=== PATIENT | female | born 1960 ===

== ENCOUNTER 2017-01-12 12:21 | Inpatient (IN) | payer BC, OTHER ==
[2017-01-12 12:23] VITALS: BMI 25.9
[2017-01-12] MEDS ORDERED: Albuterol-Ipratrop 3 mg / 0.5 (3 ml) UD IH STA (12:27)
--- NOTE | 2017-01-12 12:27 | ED PDOC ---
Arrival/HPI - General Chief Complaint: Shortness Of Breath Time Seen by Provider: 01/12/17 12:22 Historian: Patient - History of Present Illness Narrative History of Present Illness (Text): 01/12/17 12:27 A 57 year old female presents to the emergency department with 2 day duration of shortness of breath, chest tightness, and cough. She denies any history of COPD or asthma but does state that she smokes. She was seen in an emergency department 2 days ago for the same symptoms. She states that she was given breathing treatments and steroids, which improved her symptoms, but they returned today. Patient denies any fever, chills, sore throat, nausea, vomiting , abdominal pain, urinary/bowel changes, back pain, neck pain, dizziness, headache, vision changes or other associated symptoms. Time/Duration: Other (2 days) Symptom Onset: Sudden Symptom Course: Unchanged Activities at Onset: Rest, Light Context: Home Past Medical History - Provider Review Nursing Documentation Reviewed: Yes - Past History Past History: No Previous - Infectious Disease Hx of Infectious Diseases: None - Cardiac Hx Cardiac Disorders: No - Pulmonary Hx Asthma: Yes - Neurological Hx Neurological Disorder: No - HEENT Hx HEENT Disorder: No - Renal Hx Renal Disorder: No - Endocrine/Metabolic Hx Endocrine Disorders: No - Hematological/Oncological Hx Blood Disorders: No - Integumentary Hx Dermatological Disorder: No - Musculoskeletal/Rheumatological Hx Musculoskeletal Disorders: No - Gastrointestinal Hx Gastrointestinal Disorders: No - Genitourinary/Gynecological Hx Genitourinary Disorders: No - Psychiatric Hx Psychophysiologic Disorder: No Hx Anxiety: No Hx Bipolar Disorder: No Hx Depression: No Hx Emotional Abuse: No Hx Hallucinations: No Hx Panic Disorder: No Hx Post Traumatic Stress Disorder: No Hx Psychosis: No Hx Physical Abuse: No Hx Schizophrenia: No Hx Sexual Abuse: No Hx Substance Use: No - Surgical History Hx Section: Yes Other/Comment: LLe sx for polio - Anesthesia Hx Anesthesia: Yes Hx Anesthesia Reactions: No Hx Malignant Hyperthermia: No - Suicidal Assessment Feels Threatened In Home Enviroment: No Family/Social History - Physician Review Nursing Documentation Reviewed: Yes Family/Social History: No Known Family HX Smoking Status: Heavy Smoker > 10 Cigarettes Daily Hx Alcohol Use: Yes Frequency of alcohol use: Socially Hx Substance Use: No Allergies/Home Meds Allergies/Adverse Reactions: Allergies No Known Allergies Allergy (Verified 07/02/16 12:09) Home Medications: Home Meds Medication Instructions Recorded Confirmed Albuterol Sulfate [Proair 2 puff INH Q6 PRN 01/12/17 01/12/17 Respiclick] Amoxicillin/Potassium Clav 1 tab PO DAILY 01/12/17 01/12/17 [Amox-Clav 875-125 mg Tablet] Methylprednisolone [Medrol] 1 packet PO DAILY 01/12/17 01/12/17 Review of Systems - Physician Review All systems were reviewed & negative as marked: Yes - Review of Systems Constitutional: absent: Fevers, Night Sweats Eyes: absent: Vision Changes ENT: absent: Sore Throat Respiratory: Cough. absent: SOB Cardiovascular: Other (Chest tightness). absent: Chest Pain Gastrointestinal: absent: Abdominal Pain, Diarrhea, Nausea, Vomiting Genitourinary Female: absent: Dysuria, Frequency, Urine Output Changes Musculoskeletal: absent: Back Pain, Neck Pain Neurological: absent: Headache, Dizziness Physical Exam - Physical Exam Narrative Physical Exam (Text): 01/12/17 12:38 Constitutional: No acute distress. Head: Normocephalic. Atraumatic. Eyes: PERRL. ENT: Moist mucous membranes. Neck: Supple. Cardiovascular: Regular rate. Chest: No tenderness. Respiratory: Diffuse wheezing. GI: Soft. Nontender. Nondistended. Back: No CVA tenderness. Musculoskeletal: No tenderness or swelling of extremities. Skin: No rash. Neurologic: Alert, no focal deficit. Vital Signs Reviewed: Yes Vital Signs Temp Pulse Resp BP Pulse Ox 01/12/17 16:05 108 H 18 133/80 96 01/12/17 13:45 98.6 F 112 H 16 141/65 94 L 01/12/17 12:28 22 01/12/17 12:22 111 H 22 143/87 92 L Temperature: Afebrile Blood Pressure: Normal Pulse: Tachycardic Respiratory Rate: Normal Appearance: Positive for: Well-Appearing, Non-Toxic, Uncomfortable Pain Distress: None Mental Status: Positive for: Alert and Oriented X 3 Medical Decision Making ED Course and Treatment: 01/12/17 12:39 Impression: A 57 year old female presents with 2 day duration shortness of breath, chest tightness, and cough. Symptoms did not resolve after being treated 2 days ago for the same symptoms at a different emergency department. Plan: -- EKG -- Chest X-ray -- Duoneb and SOLU- Medrol -- Labs -- Reassess and disposition Prior Visits: Notes and results from previous visits were reviewed. Patient was last seen in the emergency department on 07/02/16 with a complaint of urticaria all over her body. Progress Notes: Chest X-ray Dictator : Flori Omer MD Report Date : 01/12/2017 13:21:18 IMPRESSION: No active pulmonary disease. EKG shows NSR 106 bpm, T wave inversions anterolaterally. EKG from ER visit 2 days ago which patient has with her shows LBBB. No ST elevations. Patient with improved breathing symptomatically, negative troponin, continues to saturate at 92% on room air. Dr. Rodriguez accepts patient to her service for COPD exacerbation, EKG changes, and hypoxia. Recommends Dr. Trent for pulm and Dr. Henry for cards. - Lab Interpretations Lab Results: 01/12/17 12:30 01/12/17 12:30 Lab Results 01/12/17 12:30: Sodium 141, Potassium 4.0, Chloride 105, Carbon Dioxide 22, Anion Gap 18, BUN 16, Creatinine 0.6, Est GFR ( Amer) > 60, Est GFR (Non- Af Amer) > 60, Random Glucose 121 H, Calcium 9.7, Total Bilirubin 0.4, AST 33, ALT 25, Alkaline Phosphatase 74, Total Creatine Kinase 366 H, CK-MB (CK-2) 3.7 H , CK-MB (CK-2) % Cancelled, Troponin I < 0.01, Total Protein 7.7, Albumin 4.4, Globulin 3.3, Albumin/Globulin Ratio 1.3 01/12/17 12:30: WBC 22.3 H, RBC 4.01, Hgb 12.7, Hct 36.0, MCV 89.8, MCH 31.7, MCHC 35.3, RDW 13.3, Plt Count 355, MPV 9.9, Gran % 82.2 H, Lymph % (Auto) 10.0 L, Ritchie % (Auto) 7.8 H, Eos % (Auto) 0.0 L, Baso % (Auto) 0.0, Gran # 18.32 H, Lymph # 2.2, Ritchie # 1.7 H, Eos # 0.0, Baso # 0.01 I have reviewed the lab results: Yes - RAD Interpretation Radiology Orders: 01/12/17 12:27 CHEST PORTABLE [RAD] Stat - EKG Interpretation Interpreted by ED Physician: Yes Type: 12 lead EKG - Medication Orders Current Medication Orders: Discontinued Medications Albuterol/Ipratropium (Duoneb 3 Mg/0.5 Mg (3 Ml) Ud) 3 ml IH Q15M STA Stop: 01/12/17 12:28 Last Admin: 01/12/17 12:48 Dose: 3 ml Ketorolac Tromethamine (Toradol) 30 mg IVP STAT STA Stop: 01/12/17 13:50 Last Admin: 01/12/17 14:00 Dose: 30 mg MAR Pain Assessment Document 01/12/17 14:00 AD (Rec: 01/12/17 14:01 AD [facility] [id number] Pain Reassessment Is this a pain reassessment? No Presence of Pain Presence of Pain Yes Pain Scale Used Pain Scale Used Numeric Location Pain Location Body Site Face Description Description Constant Intensity of Pain at present 7 Site Observation "sinus discomfort" Pain Behavior Facial Grimacing IVP Administration Document 01/12/17 14:00 AD (Rec: 01/12/17 14:01 AD [facility] [id number]) Charges for Administration # of IVP Administrations 1 Methylprednisolone (Solu-Medrol) 125 mg IVP STAT STA Stop: 01/12/17 12:28 Last Admin: 01/12/17 12:48 Dose: 125 mg IVP Administration Document 01/12/17 12:48 AD (Rec: 01/12/17 12:48 AD [facility] [id number]) Charges for Administration # of IVP Administrations 1 - Scribe Statement The provider has reviewed the documentation as recorded by the Scribe Kiera Rodriguez Provider Scribe Attestation: All medical record entries made by the Scribe were at my direction and personally dictated by me. I have reviewed the chart and agree that the record accurately reflects my personal performance of the history, physical exam, medical decision making, and the department course for this patient. I have also personally directed, reviewed, and agree with the discharge instructions and disposition. Disposition/Present on Arrival - Present on Arrival Any Indicators Present on Arrival: No History of DVT/PE: No History of Uncontrolled Diabetes: No Urinary Catheter: No History of Decub. Ulcer: No History Surgical Site Infection Following: None - Disposition Have Diagnosis and Disposition been Completed?: Yes Diagnosis: COPD exacerbation, Acute electrocardiogram changes, Hypoxia Disposition: HOSPITALIZED Disposition Time: 14:13 Patient Plan: Admission, Telemetry Condition: GUARDED
[2017-01-12 13:04] LABS: BASO # 0.01 K/mm3 (0.0-2.0); GRAN # 18.32 (1.4-6.5); GRAN % 82.2 % (50.0-68.0); LYMPH # 2.2 (1.2-3.4); MEAN CELL VOLUME 89.8 fl (80.0-105.0); MEAN CORPUSCULAR HEMOGLOBIN 31.7 pg (25.0-35.0); MEAN CORPUSCULAR HGB CONC 35.3 g/dl (31.0-37.0); MEAN PLATELET VOLUME 9.9 fl (7.0-11.0); MONO # 1.7 (0.1-0.6); MONO % 7.8 % (1.0-6.0); RED CELL DISTRIBUTION WIDTH 13.3 % (11.5-14.5); WHITE BLOOD COUNT 22.3 10^3/ul (4.5-11.0)
[2017-01-12 13:10] LABS: ALB/GLOB RATIO 1.3 (1.1-1.8); ALKALINE PHOSPHATASE 74 U/L (38-126); ALT/SGPT 25 U/L (7-56); AST/SGOT 33 U/L (14-36); BILIRUBIN,TOTAL 0.4 mg/dL (0.2-1.3); BLOOD UREA NITROGEN 16 mg/dL (7-21); CALCIUM 9.7 mg/dL (8.4-10.5); CARBON DIOXIDE 22 mmol/L (21-33); CHLORIDE 105 mmol/L (98-107); GFR AFRICAN-AMERICAN > 60; GLUCOSE,RANDOM 121 mg/dL (70-110); SODIUM 141 mmol/L (132-148); TOTAL PROTEIN 7.7 g/dL (5.8-8.3)
[2017-01-12 13:21] LABS: TROPONIN I < 0.01 ng/mL
--- NOTE | 2017-01-12 13:22 | RAD ---
HISTORY: Dyspnea COMPARISON: 08/26/2016. FINDINGS: LUNGS: The lungs are well inflated and clear. No focal consolidation. PLEURA: No significant pleural effusion identified, no pneumothorax apparent. CARDIOVASCULAR: Normal. 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 VISUALIZED UPPER ABDOMEN: Normal. OTHER FINDINGS: None. IMPRESSION: No active pulmonary disease.
[2017-01-12] MEDS ORDERED: Levalbuterol 0.63 MG/3 ML Inhal Soln UD IH SCH (20:00)
[2017-01-12] MEDS ORDERED: Azithromycin 500MG/NS 250ml 500 MG/250 ML BAG IVPB ONE (22:45)
[2017-01-12] MEDS: Albuterol-Ipratrop 3 mg / 0.5 (3 ml) UD IH SCH (23:55)
--- NOTE | 2017-01-13 01:04 | CARD ---
APPROVED REPORT EKG Measurement Heart [id number] <Conclusion> Sinus tachycardia ST & T wave abnormality, consider inferior ischemia ST & T wave abnormality, consider anterolateral ischemia Abnormal ECG
--- NOTE | 2017-01-13 02:24 | CON ---
DATE: 01/12/2017 LOCATION: The patient is in room 262, bed 1. REASON FOR CONSULTATION: Shortness of breath and chest pain. HISTORY OF PRESENT ILLNESS: This 57-year-old female who is a 10 cigarettes a day smoker for 20 years. She states that since last 3 to 4 days, she is having episode of cough and shortness of breath. She was in [place], went to emergency room there and was told to be admitted, but she never want to got admitted, she came home, and now she states shortness of breath and cough is getting worse. She also gives history that when she walks, she gets a feeling of lump in the throat and recently she was supposed to have a biopsy in the neck for possible lymph node enlargement and she was found to have abnormal EKG and she was told to see a value stream manager, the value stream manager to be treated and to be do it yet. The patient denies any palpitations. PAST MEDICAL HISTORY: Positive for section. PERSONAL HISTORY: Smokes 10 cigarettes a day and drinks socially. ALLERGIES: DENIED ANY ALLERGIES. HOME MEDICATIONS: She was given Medrol Dosepak and albuterol sulfate 2 puffs inhalation and Augmentin antibiotic at [place] when she visited the emergency room. FAMILY HISTORY: Not significant. REVIEW OF SYSTEMS: All the systems reviewed positive mentioned in the history, otherwise negative. PHYSICAL EXAMINATION: VITAL SIGNS: Blood pressure 141/53, respirations 18, pulse 105, and temperature 98.6. HEENT: Head is normocephalic. Eyes; pupils are normal. Conjunctivae normal. Nose and throat; normal. NECK: JVP is low. Carotids are equal. Thorax; AP diameter normal. LUNGS: Bilateral wheezing especially on expiration. CARDIOVASCULAR: S1 and S2. No rubs. ABDOMEN: Soft and nontender. No organomegaly. Bowel sounds normal. EXTREMITIES: No edema. No cyanosis. No clubbing. LABORATORY DATA: WBC 22.3, hemoglobin 12.7, and hematocrit 36.0. Sodium 141, potassium 4.0, BUN 16, and creatinine 0.6. AST and ALT normal. CPK 366. Troponin less than 0.01. Total protein and albumin normal. Chest x-ray seem to be hyperinflated. EKG showed sinus rhythm, rate 106 per minute, and ST-T changes. As compared to the EKG which she had in [place] that EKG showed left bundle-branch block, but today's EKG does not show left bundle-branch block, shows rather sinus rhythm with ST-T changes. DIAGNOSES: Asthmatic bronchitis, possible exacerbation of chronic obstructive pulmonary disease with respiratory tract infection, ST-T changes on EKG and feeling a lump on exertion, walking 1 or 2 blocks relieved by that suggestive of coronary artery disease. PLAN: The patient already received Solu-Medrol 125 mg IV stat. We will start Rocephin 1 g IV daily and azithromycin 500 mg IV daily and DuoNeb hand nebulizer therapy. We will order echocardiogram. We will check lipid level and TSH. When the patient improves from pulmonary status, then we will do nuclear stress test and we will closely follow. Gena Henry MD
--- NOTE | 2017-01-13 04:50 | HP ---
CHIEF COMPLAINT: Shortness of breath and coughing. HISTORY OF PRESENT ILLNESS: Ms. Monica Pinzon is 57 years old female came to the emergency room with 2 days history of duration of shortness of breath, chest tightness, and coughing. The patient denies any history of asthma or COPD. Says that she smokes. She was seen in the emergency room 2 days ago for the same symptoms. She states that she was given breathing treatment and steroids which improved her symptoms, but they returned today. The patient denies any fevers, chills, sore throat, nausea, vomiting, diarrhea, or abdominal pain. No urinary symptoms. No bowel symptoms. No visual changes. No headache. No dizziness. PAST MEDICAL HISTORY: Asthma, history of section,and history of polio. FAMILY HISTORY: Father and mother noncontributory. HABITS: Heavy smoking more than 10 cigarettes per day. Alcohol yes, frequency of alcohol use socially. Substance abuse, no. ALLERGIES: THE PATIENT IS NOT ALLERGIC WITH ANY MEDICATION. HOME MEDICATIONS: Albuterol, amoxicillin and methylprednisolone. REVIEW OF SYSTEMS: The patient is seen and examined at the bedside in the telemetry. Family was around. The patient still coughing and wheezing. No nausea, vomiting or diarrhea. No vision changes. No sore throat. Feeling chest tightness. No abdominal pain or diarrhea. No dysuria or frequency. No urinary output changes. No neck pain or back pain. No headache. No dizziness. PHYSICAL EXAMINATION: VITAL SIGNS: Temperature 98.6, pulse 112, respiratory rate 15, blood pressure 141/55, and pulse oximetry 94. HEENT: Head normocephalic and atraumatic. Eyes; PERRLA. Extraocular muscles intact. Conjunctivae clear. Nose patent. NECK: Supple. No carotid bruits, JVD or thyromegaly. CHEST: Bilaterally symmetrical. HEART: S1 and S2 positive. LUNGS: Positive wheezing bilaterally. ABDOMEN: Soft. Bowel sounds present. No organomegaly. EXTREMITIES: No edema. No cyanosis. NEUROLOGIC: The patient is awake and alert. Moving all 4 extremities. No focal deficits. LABORATORY DATA: White blood cells 22.3, hemoglobin 12.7, hematocrit 36.0, and platelets 355. Sodium 141, potassium 4, BUN 16, creatinine 0.6, and glucose 121. ASSESSMENT AND PLAN: Ms. Monica Pinzon is 57 years old female with leukocytosis, hyperglycemia, came with asthma, albuterol given and Toradol given. Had chest pain, seen by Dr. Henry. This is patient's second visit for similar complaints of upper respiratory tract infection. Admitted the patient. Gastrointestinal and deep venous thrombosis prophylaxis. Repeat labs. Discussion done with Dr. Henry and ER Dr. Leroy Braga. Fatimah Rodriguez MD
[2017-01-13 07:36] LABS: BASO # 0.01 K/mm3 (0.0-2.0); BASO % 0.1 % (0.0-3.0); EOS % 0.1 % (1.5-5.0); GRAN % 83.3 % (50.0-68.0); LYMPH # 1.9 (1.2-3.4); LYMPH % 12.3 % (22.0-35.0); MEAN CELL VOLUME 91.1 fl (80.0-105.0); MEAN CORPUSCULAR HEMOGLOBIN 30.7 pg (25.0-35.0); MEAN CORPUSCULAR HGB CONC 33.7 g/dl (31.0-37.0); MEAN PLATELET VOLUME 9.9 fl (7.0-11.0); MONO # 0.7 (0.1-0.6); MONO % 4.2 % (1.0-6.0); RED CELL DISTRIBUTION WIDTH 13.6 % (11.5-14.5); WHITE BLOOD COUNT 15.6 10^3/ul (4.5-11.0)
[2017-01-13 07:57] LABS: CHOLESTEROL 185 mg/dL (130-200)
[2017-01-13] MEDS: Albuterol-Ipratrop 3 mg / 0.5 (3 ml) UD IH SCH ×6 (07:57→21:02)
[2017-01-13] MEDS: cefTRIAXone 1 gm 1 GM/100 ML BAG IVPB SCH (09:00)
[2017-01-13] MEDS: Enoxaparin 30 mg Syringe SC SCH (09:22)
[2017-01-13] MEDS: Pantoprazole 40 mg EC Tab PO SCH (09:22)
[2017-01-13] MEDS: MethylPREDNISolone 40 mg Vial IVP SCH ×2 (09:23→21:32)
[2017-01-13] MEDS: Azithromycin 500MG/NS 250ml 500 MG/250 ML BAG IVPB SCH ×2 (09:23→10:15)
[2017-01-13] MEDS ORDERED: Azithromycin 500MG/NS 250ml 500 MG/250 ML BAG IVPB SCH (10:00)
--- NOTE | 2017-01-13 23:25 | CP.PCM.PN ---
Subjective - Date & Time of Evaluation Date of Evaluation: 01/13/17 Time of Evaluation: 23:24 - Subjective Subjective: Nurse calls and tells that BP was 183/94---->172/102. Has no complaints. Patient seen at bedside. States that she had little head ache earlier about 6 PM . Has no complaints now. Denies headache, dizziness, nausea, chest pain, sob, paraesthesia, weakness. This 57 year old white woman was admitted with sob, chest tightness , coughing of 2 days duration. Has PMH of asthma, polio, C -Section. Objective - Vital Signs/Intake and Output Vital Signs (last 24 hours): Temp Pulse Resp BP Pulse Ox 98.5 F 68 20 174/84 H 97 01/13/17 18:00 01/13/17 18:00 01/13/17 18:00 01/13/17 18:00 01/13/17 06:00 - Medications Medications: Current Medications Acetaminophen (Tylenol 325mg Tab) 650 mg PO Q6H PRN PRN Reason: Pain, Mild (1-3) Last Admin: 01/13/17 17:54 Dose: 650 mg Albuterol/Ipratropium (Duoneb 3 Mg/0.5 Mg (3 Ml) Ud) 3 ml IH QID [facility] Last Admin: 01/13/17 21:02 Dose: 3 ml Aspirin (Ecotrin) 81 mg PO DAILY [facility] Last Admin: 01/13/17 09:22 Dose: 81 mg Enoxaparin Sodium (Lovenox) 30 mg SC DAILY [facility] PRN Reason: Protocol Last Admin: 01/13/17 09:22 Dose: 30 mg Ceftriaxone Sodium (Rocephin 1 Gram Ivpb) 1 gm in 100 mls @ 100 mls/hr IVPB DAILY [facility] PRN Reason: Protocol Last Admin: 01/13/17 09:00 Dose: 100 mls/hr Azithromycin (Zithromax 500mg In Ns) 500 mg in 250 mls @ 167 mls/hr IVPB DAILY [facility] PRN Reason: Protocol Last Admin: 01/13/17 10:15 Dose: 167 mls/hr Methylprednisolone (Solu-Medrol) 40 mg IVP Q12 [facility] Last Admin: 01/13/17 21:32 Dose: 40 mg Montelukast Sodium (Singulair) 10 mg PO HS [facility] Last Admin: 01/13/17 21:32 Dose: 10 mg Nicotine (Nicoderm Cq) 1 patch TD DAILY [facility] Pantoprazole Sodium (Protonix Ec Tab) 40 mg PO DAILY [facility] Last Admin: 01/13/17 09:22 Dose: 40 mg - Labs Labs: 01/13/17 07:20 - Constitutional Appears: Well, No Acute Distress - Head Exam Head Exam: ATRAUMATIC, NORMAL INSPECTION, NORMOCEPHALIC - Eye Exam Eye Exam: Normal appearance - ENT Exam ENT Exam: Normal External Ear Exam - Neck Exam Neck Exam: Normal Inspection - Respiratory Exam Respiratory Exam: NORMAL BREATHING PATTERN - Cardiovascular Exam Cardiovascular Exam: absent: JVD - GI/Abdominal Exam GI & Abdominal Exam: absent: Diminished Bowel Sounds - Rectal Exam Rectal Exam: Deferred - Exam Additional comments: Deferred. - Extremities Exam Extremities Exam: Normal Inspection - Back Exam Back Exam: NORMAL INSPECTION - Neurological Exam Neurological Exam: Alert, Oriented x3 - Psychiatric Exam Psychiatric exam: Normal Affect, Normal Mood - Skin Skin Exam: Normal Color Assessment and Plan - Assessment and Plan (Free Text) Assessment: Elevated blood pressure reading. HTN. Asthma. History of polio. Plan: Cloinidine 0.1 mg PO stat. Continue present management as per PMD.
--- NOTE | 2017-01-14 02:31 | PN ---
DATE: 01/13/2017 LOCATION: The patient is in room 262, bed 1. REASON FOR CONSULTATION: Shortness of breath and chest pain. SUBJECTIVE: The patient still has cough. Her breathing has slightly improved and cough seemed to be slightly less. She is not having any palpitation or chest pain at present, but she does give history of discomfort, lump-like feeling in the throat when she walks, which is relieved by rest. PHYSICAL EXAMINATION VITAL SIGNS: Blood pressure 131/86, respirations 21, pulse 90, and temperature 98.8. HEENT: Head is normocephalic. Eyes; pupils are normal. Conjunctivae normal. Nose and throat; normal. NECK: JVP is low. Carotids are equal. Thorax; AP diameter normal. LUNGS: The patient still has wheezing, but seemed to be slightly less as compared to yesterday. CARDIOVASCULAR: S1 and S2. ABDOMEN: Soft and nontender. No organomegaly. Bowel sounds normal. EXTREMITIES: No clubbing. No cyanosis. LABORATORY DATA: WBC 15.6, hemoglobin 11.8, hematocrit 35.0, and platelet 302. Sodium 141, potassium 4.0, BUN 16, and creatinine 0.6. AST and ALT normal. Troponin less than 0.01. Lipid profile is normal. DIAGNOSES: Asthmatic bronchitis, possible exacerbation of chronic obstructive pulmonary disease or respiratory tract infection, ST-T changes on the EKG and feeling a lump on exertion in the throat, one has to rule out coronary artery disease. PLAN: We will continue antibiotic and Solu-Medrol, and the patient had echocardiogram today, we will follow the report, and when the patient's pulmonary status get better, she will need a nuclear stress test and we will continue to follow with you. Gena Henry MD
--- NOTE | 2017-01-14 02:44 | CON ---
PULMONARY CONSULTATION DATE: 01/13/2017 REFERRING PHYSICIAN: Fatimah Rodriguez MD REASON FOR CONSULTATION: Exacerbation of chronic lung disease, cough and shortness of breath. HISTORY OF PRESENT ILLNESS: This is a 57 years old female with known history of chronic obstructive lung disease, active smoker, and having shortness of breath in the last few days while traveling went to [place] and been having cough, even seen in emergency room there and was requested to stay in the hospital, which she refuse and came back home. Her condition getting worse and came to emergency room at [facility] where she refuse IV and inhaled bronchodilator with some response are consistently with short of breath, then had to be admitted, presently lying in the bed, head at 35 degree and having cough and shortness of breath. No chest pain. No nausea. No vomiting. No diarrhea. No leg pain or leg swelling. PAST MEDICAL HISTORY: Chronic obstructive lung disease, history of polio and also have a history of . ALLERGIES: NONE KNOWN. FAMILY HISTORY: No significant cardiopulmonary disease reported. SOCIAL HISTORY: She is a smoker. Denies any alcohol use. Denies any substance abuse. MEDICATIONS: Presently, she is on DuoNeb q.i.d., Ecotrin 81 mg daily, Lovenox 30 mg daily, Nicoderm patch daily, Protonix 40 mg daily, Rocephin 1 g daily, Singulair 10 mg at bedtime, Solu-Medrol 20 mg q. 12 hours, Tylenol p.r.n. basis, Zithromax 500 mg daily. REVIEW OF SYSTEMS: No headache. No rhinitis. Cough, sputum production, muscular type pain. No nausea. No vomiting. No diarrhea. No leg pain or leg swelling. PHYSICAL EXAMINATION: GENERAL: Lying in the bed, mild distress secondary to cough and shortness of breath. VITAL SIGNS: Temperature is 98, heart rate is 90, respiratory rate is 20, blood pressure is 131/86, and pulse ox is 97% on room air. HEENT: Moist mucous membranes. No ulcer or thrush noted. Crowded airway. HEART: S1 and S2. LUNGS: Poor airflow with expiratory wheezing. ABDOMEN: Soft and nontender. No organomegaly. EXTREMITIES: There is no edema. NEUROLOGIC: Awake, alert, follow simple commands. LABORATORY DATA: Shows hemoglobin 11.8, hematocrit 35.0, WBC 15.6 and platelet is 302. Sodium 141, potassium 4.0, chloride 105, bicarbonate 22, BUN 16, creatinine 0.6, glucose 121, calcium 9.7, total bili 0.4, AST 33, ALT 25, alk phos is 74, and total creatine kinase 366. Troponin less than 0.01, albumin 4.4 and cholesterol is 185. An echocardiogram done report is pending. Chest x-ray done in the emergency room, which shows no active pulmonary disease. IMPRESSION AND PLAN: Chronic obstructive lung disease with exacerbation, active smoker, mild leukocytosis. Case discussed with cardiology, Dr. Henry. Speak to the patient's family bedside, all the question answered. Continue IV steroids antibiotics. Gastric and deep venous thrombosis prophylaxis. The patient yet to stop smoking. We will recommend pulmonary function test as outpatient upon discharge. Thank you and we will follow with you. Gena Trent MD
[2017-01-14] MEDS: Albuterol-Ipratrop 3 mg / 0.5 (3 ml) UD IH SCH ×4 (07:51→20:06)
[2017-01-14] MEDS: cefTRIAXone 1 gm 1 GM/100 ML BAG IVPB SCH (09:54)
[2017-01-14] MEDS: MethylPREDNISolone 40 mg Vial IVP SCH ×2 (09:54→21:37)
[2017-01-14] MEDS: Pantoprazole 40 mg EC Tab PO SCH (09:54)
[2017-01-14] MEDS: Enoxaparin 30 mg Syringe SC SCH (09:55)
[2017-01-14] MEDS: Azithromycin 500MG/NS 250ml 500 MG/250 ML BAG IVPB SCH (09:59)
--- NOTE | 2017-01-14 11:31 | CARD ---
APPROVED REPORT EXAM: Two-dimensional and M-mode echocardiogram with Doppler and color Doppler. INDICATION 2D DIMENSIONS IVSd1.0 (0.7-1.1cm)LVDd5.7 (3.9-5.9cm) PWd1.1 (0.7-1.1cm)LVDs4.7 (2.5-4.0cm) FS (%) 16.4 %LVEF (%)34.2 (>50%) M-Mode DIMENSIONS Left Atrium (MM)3.60 (2.5-4.0cm)Aortic Root2.40 (2.2-3.7cm) Aortic Cusp Exc.1.70 (1.5-2.0cm) Aortic Valve AoV Peak Nogwzein981.0cm/Chelsey Peak GR.9mmHg Mitral Valve MV E Khiamzvx60.4cm/sMV A Rzytvhny826.0cm/sE/A ratio0.8 TDI Lateral E' Peak V8.97cm/sMedial E' Peak V5.46cm/sE/Lateral E'9.4 E/Medial E'15.5 Tricuspid Valve TR Peak Snwgaxlr668md/sRAP [id number] Peak Gr.21mmHg [id number] LEFT VENTRICLE The Left Ventricle is borderline dilated. There is mild concentric left ventricular hypertrophy. The systolic function is mildly to moderately impaired.EF-35-% There is mild to moderate hypokinesis in the apical anterior wall. Tissue Doppler imaging reveals abnormal left ventricular diastolic dysfunction. No left ventricle thrombus noted on this study. There is no ventricular septal defect visualized. There is no left ventricular aneurysm. There is no mass noted in the left ventricle. RIGHT VENTRICLE The right ventricle is normal size. There is normal right ventricular wall thickness. The right ventricular systolic function is normal. ATRIA The left atrium is borderline dilated. The right atrium size is normal. The interatrial septum is intact with no evidence for an atrial septal defect. AORTIC VALVE The aortic valve is thickened but opens well. There is trace aortic regurgitation. There is no aortic valvular stenosis. There is no aortic valvular vegetation. MITRAL VALVE The mitral valve is thickened but opens well. Mitral regurgitation is mild to moderate. There is no mitral valve stenosis. There is no evidence of mitral valve prolapse. TRICUSPID VALVE The tricuspid valve leaflets are thickened , but open well. There is trace tricuspid regurgitation.RVSP-31 mmof Hg. There is no tricuspid valve stenosis. There is no tricuspid valve prolapse or vegetation. PULMONIC VALVE The pulmonary valve is normal in structure. There is trace pulmonic valvular regurgitation. There is no pulmonic valvular stenosis. GREAT VESSELS The aortic root is normal in size. The ascending aorta is normal in size. The pulmonary artery is normal. The IVC is dilated. PERICARDIAL EFFUSION There is no pleural effusion. There is no pericardial effusion. <Conclusion> The Left Ventricle is borderline dilated. There is mild concentric left ventricular hypertrophy. The systolic function is mildly to moderately impaired.EF-35-% There is trace aortic regurgitation. Mitral regurgitation is mild to moderate. There is trace tricuspid regurgitation.RVSP-31 mmof Hg. No Vegetation or thrombus noted.
--- NOTE | 2017-01-14 12:28 | PN ---
DATE: 01/14/2017 LOCATION: The patient is in room 262, bed 1. REASON FOR CONSULTATION: Shortness of breath and chest pain. SUBJECTIVE: The patient still has cough, but is decreasing. The patient's shortness of breath is also improving. The patient denies chest pain or palpitation. The patient is lying flat in bed without any respiratory distress at present. PHYSICAL EXAMINATION VITAL SIGNS: Blood pressure 185/91, earlier 172/102, respirations 20, pulse 80, and temperature 98.7. HEENT: Head is normocephalic. Eyes, pupils normal. Conjunctivae normal. Nose and throat normal. NECK: JVP low. Carotid equal. THORAX: AP diameter normal. LUNGS: Still has wheezing, but is less than before. CARDIOVASCULAR: S1 and S2. ABDOMEN: Soft, nontender, and no organomegaly. EXTREMITIES: No clubbing. No cyanosis. LABORATORY DATA: Done on 01/12/2017, and they were reported in old previous notes. DIAGNOSES: Asthmatic bronchitis, possible exacerbation of chronic obstructive pulmonary disease, respiratory tract infection, supraventricular tachycardia. Changes in EKG and feeling a lump on exertion in the throat, one has rule out coronary artery disease, and hypertension. PLAN: I am going to add Norvasc 10 mg daily and lisinopril 10 mg daily for blood pressure. In the meantime, we will continue antibiotics and steroids and nebulizer therapy. When the patient's pulmonary status is better, then we can do the stress test. At this moment, the patient does not have any chest pain. We will follow. Gena Henry MD
--- NOTE | 2017-01-14 18:42 | PN ---
DATE: SUBJECTIVE: The patient is a 57 years old. The patient seen and examined at bedside. Looking comfortable. No nausea, vomiting, or diarrhea. No hemoptysis or hematochezia. No swelling noted in the leg. No chest pain. No palpitations. No headache or dizziness. Cough is better. Shortness of breath is better. PHYSICAL EXAMINATION VITAL SIGNS: Blood pressure 185/91, repeat was 172/102, respiratory rate 20, pulse 80, temperature 98.7. HEENT: Head normocephalic, atraumatic. Eyes: PERRLA. Extraocular muscles intact. Conjunctivae clear. Nose patent. Mucous membranes are moist. NECK: Supple. No carotid bruits, JVD or thyromegaly. CHEST: Bilaterally symmetrical. HEART: S1 and S2 positive. LUNGS: Clear to auscultation. ABDOMEN: Soft. Bowel sounds present. No organomegaly. EXTREMITIES: No edema. No cyanosis. NEUROLOGIC: The patient is awake and alert. Moving all 4 extremities. No focal deficits. MEDICATIONS: DuoNeb, Ecotrin, Lovenox, Nicoderm, Norvasc, Protonix, Rocephin, Singulair, Solu-Medrol, Tylenol, Zestril, and Zithromax. LABORATORY DATA: White blood cells 16.6, hemoglobin 11.8, hematocrit 35.0, and platelets 302. Sodium 141, potassium 4.0, BUN 16, and creatinine 0.6. ASSESSMENT AND PLAN: Ms. Monica Pinzon is 57 years old female with leukocytosis, anemia, hyperglycemia, and hypertension not controlled. We will change medications, seen by residential aide Dr. Henry. Asthmatic bronchitis is possibility, as well as the patient has chronic obstructive pulmonary disease, respiratory infection, supraventricular tachycardia, abnormal EKG, lump on exertion in the throat, coronary artery disease, and hypertension. 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 Continue antibiotics tapering dose of steroid, nebulizer treatment, waiting for ENT input. GI and DVT prophylaxis. Repeat labs. Fatimah Rodriguez MD
--- NOTE | 2017-01-15 00:03 | CON ---
DATE: 01/14/2017 EAR, NOSE AND THROAT CONSULTATION CHIEF COMPLAINT: Neck swelling. HISTORY OF PRESENT ILLNESS: This is a 57-year-old with a past medical history of hypertension who presented to [facility] with shortness of breath, ENT was consulted for patient;s history of neck swelling. The patient reports that earlier this year she followed up with Dr. Ramos as outpatient in the clinic for bilateral submandibular swelling. She reports that there was diffuse swelling under her chin and neck. It was not painful. It was not causing her shortness of breath. The patient was at surgery center in August about to undergo a biopsy of the possible lymph nodes under her chin when there were EKG changes appreciated and the case was halted. The patient reports she did not get time to follow up with her primary care doctor or Dr. Ramos or a cardiology for the EKG changes due to personal events. Currently, the patient denies the neck swelling and diffuse enlarged lymph nodes under her chin. She reports that the swelling went away by itself and it is not bothering her anymore. She denies any hearing loss, any nasal congestion, any difficulty breathing and any difficulty swallowing. Of note, the patient reports that she had small nose bleeds yesterday which stopped on its own with mild nasal pressure. PAST MEDICAL HISTORY: Hypertension. The patient has a history of polio. PAST SURGICAL HISTORY: and reconstruction for polio. REVIEW OF SYSTEMS: All 10 review of systems were observed all are negative except for HPI. PHYSICAL EXAMINATION GENERAL APPEARANCE: The patient is alert and oriented x3. No acute distress. NOSE: Bilateral nasal cavities were appreciated with patent, small blood clot was appreciated in the left nasal cavity at the anterior septum and the anterior tip of the inferior turbinate. The patient is not actively bleeding. Dry nasal cavity bilaterally. EARS: Bilateral ear external auditory canals are patent without any cerumen. Bilateral tympanic membranes are appreciated to be intact, pass lucent without any effusions. ORAL CAVITY: Moist mucous membranes. No masses or lesions are appreciated. No swelling in oral cavity or oropharynx. NECK: The patient does not have any lymphadenopathy. Her submandibular glands are slightly enlarged bilaterally, nonpainful. Thyroid is without any nodules. ASSESSMENT: This is a 57-year-old female with a past medical history of polio and hypertension, who was consulted for neck pain/neck swelling. PLAN: Recommend humidified oxygen for oxygen therapy to prevent nasal cavity dryness which can lead to epistaxis. The patient does not actively have any neck pain or neck swelling. The patient to follow up with Dr. Ramos as outpatient in 1 to 2 week. Recommend nasal saline solution to be apply to nasal cavity bilaterally twice a day. His neck swelling or neck pain worsen, please contact the ENT service. This was discussed with the patient, this was discussed with the nurse and is also discussed with the ENT attending Dr. Reynolds. Thank you for helping us take part in this patient's medical management. Shaji Reynolds DO
--- NOTE | 2017-01-15 02:24 | PN ---
DATE: 01/14/2017 PULMONARY PROGRESS NOTE REFERRING PHYSICIAN: Fatimah Rodriguez MD. SUBJECTIVE: The patient is sitting up in the bed. Family is at bedside. Night was unremarkable. Feels better. Feeling little cough and wheezing, but feels better. No nausea, no vomiting, and no diarrhea. No leg pain or leg swelling. OBJECTIVE GENERAL: In no acute distress.. VITAL SIGNS: Temperature 98, heart rate 115, respiratory rate is 20, blood pressure 146/84, pulse oximetry 93% on room air. HEENT: Moist mucous membrane. No oral thrush noted. NECK: Supple. No JVD. LUNGS: Has a few crackles and expiratory wheezing. HEART: S1 and S2. ABDOMEN: Soft, nontender. No organomegaly. EXTREMITIES: No edema. NEUROLOGICAL: Awake and alert. Follow simple commands. MEDICATIONS: She is on DuoNeb q. 6 hours, Ecotrin 81 mg daily, Nicoderm patch daily, Norvasc 10 mg daily, Plavix 25 mg daily, Protonix 40 mg daily, Rocephin 1 g daily, Singulair 10 mg daily, Solu-Medrol 20 mg q 12 hours, Tylenol p.r.n. basis, Zestril 40 mg daily, Zithromax 500 mg daily. LABORATORY DATA: Reviewed. No new lab is available since yesterday. Echocardiogram was done yesterday which shows right ventricular systolic pressure is 31, LV ejection fraction is 35, with trace aortic regurg. IMPRESSION AND PLAN: Chronic obstructive lung disease with exacerbation, active smoker, leukocytosis, cardiomyopathy with decreased LV function. Pulmonary point of view, we will continue IV and inhaled bronchodilator. Continue antibiotics. Seen by vp public relations, scheduled for further cardiac testing. The patient is to stop smoking. We will need PFTs as an outpatient upon discharge. Thank you and we will follow with you. Gena Trent MD
[2017-01-15 06:10] LABS: BLOOD UREA NITROGEN 17 mg/dL (7-21); CALCIUM 9.3 mg/dL (8.4-10.5); CARBON DIOXIDE 30 mmol/L (21-33); CHLORIDE 102 mmol/L (95-110); GFR AFRICAN-AMERICAN > 60; GLUCOSE,RANDOM 128 mg/dL (70-110); POTASSIUM 4.4 mmol/L (3.6-5.0); SODIUM 142 mmol/L (132-148)
[2017-01-15 06:26] VITALS: O2SAT 97
[2017-01-15 06:26] LABS: HEMATOCRIT 36.8 % (36.0-48.0); MEAN CELL VOLUME 90.6 fl (80.0-105.0); MEAN CORPUSCULAR HGB CONC 34.2 g/dl (31.0-37.0); MEAN PLATELET VOLUME 9.8 fl (7.0-11.0); RED CELL DISTRIBUTION WIDTH 13.2 % (11.5-14.5); WHITE BLOOD COUNT 13.5 10^3/ul (4.5-11.0)
[2017-01-15 06:32] VITALS: RESP 20
[2017-01-15] MEDS: Albuterol-Ipratrop 3 mg / 0.5 (3 ml) UD IH SCH ×4 (07:21→20:46)
--- NOTE | 2017-01-15 09:29 | PN ---
SUBJECTIVE: The patient is a 57-year-old female. The patient was seen and examined at the bedside, the family was around. Coughing is little bit better, shortness of breath is little better. Having headache, swelling of the neck, history of active smoking. No nausea, vomiting, diarrhea. No hematuria or hematochezia. No chest pain, no palpitation. No blurring of vision. PHYSICAL EXAMINATION: VITAL SIGNS: Temperature 98.6, pulse 57, blood pressure 151/89, and respiratory rate 18. HEENT: Head normocephalic and atraumatic. Eyes, PERRLA. Extraocular muscles intact. Conjunctivae clear. Nose patent. Mucous membrane moist. NECK: Supple. No carotid bruits. No JVD, no thyromegaly. CHEST: Bilaterally symmetrical. HEART: S1 and S2 positive. LUNGS: Clear to auscultation. ABDOMEN: Soft. Bowel sounds present. No organomegaly. EXTREMITIES: No edema. No cyanosis. NEUROLOGIC: The patient is awake and alert. Follow simple commands. MEDICATIONS: DuoNeb, Ecotrin, Lovenox, Protonix, Rocephin, Singulair, Solu-Medrol, Tylenol, Zithromax. LABORATORY DATA: White blood cells 16.6, hemoglobin 11.8, hematocrit 35.0. Sodium 141, potassium 4.0, BUN 16, creatinine 0.6, glucose 121. A/P copd , htn , chest pain , actively smoking , , gerd ,cardiology and pulmonary is on the case , getting tapering dose of solumedrol , anb. . gi dvt pro. Fatimah Rodriguez MD MTDD
[2017-01-15] MEDS: Pantoprazole 40 mg EC Tab PO SCH (10:11)
[2017-01-15] MEDS: cefTRIAXone 1 gm 1 GM/100 ML BAG IVPB SCH (10:11)
[2017-01-15] MEDS: Azithromycin 500MG/NS 250ml 500 MG/250 ML BAG IVPB SCH (10:12)
[2017-01-15] MEDS ORDERED: Lidocaine 2% Inj (20ml) ONE (10:13)
[2017-01-15] MEDS ORDERED: Nitroglycerin 50mg in D5W 50 MG/250 ML BOTTLE IV ONE (10:13)
[2017-01-15] MEDS ORDERED: Iohexol 350mgl/ml 50 ML ONE (10:13)
[2017-01-15] MEDS ORDERED: Midazolam 2 MG/2 ML VIAL ONE (10:24)
[2017-01-15] MEDS ORDERED: Sodium Chloride 0.9% 1,000 ML IV SCH (11:45)
[2017-01-15] MEDS: MethylPREDNISolone 40 mg Vial IVP SCH ×2 (12:11→21:15)
--- NOTE | 2017-01-15 17:21 | PN ---
DATE: 01/15/2017 REASON FOR CONSULTATION AND FOLLOWUP: Shortness of breath and chest pain, decreased LV function, unstable angina, preop clearance. SUBJECTIVE: The patient denies any chest pain, shortness of breath, or any palpitation. OBJECTIVE: Examination as follows: VITAL SIGNS: Temperature afebrile, heart rate 86, blood pressure 159/92. HEENT: PERRLA. Extraocular muscles intact. NECK: Supple. No carotid bruits. No thyromegaly. CHEST: Clear to auscultation. HEART: S1 and S2 regular. ABDOMEN: Soft. EXTREMITIES: Clubbing and cyanosis negative. LABORATORY DATA: Blood workup as follows: WBC 13.5, hemoglobin 12.3, hematocrit 36.8, platelet count 301. Chemistry shows sodium 142, potassium 4.4, chloride 102, carbon dioxide 30, anion gap of 14, BUN 17, creatinine 0.5. TSH 0.16. Echocardiography showed the ejection fraction 35%, Trace aortic regurgitation, [id number] mitral regurgitation. In view of unstable angina, preop clearance and cardiomyopathy, the patient underwent cardiac catheterization that revealed nonobstructive coronary artery disease, decreased LV function, ejection fraction 35 to 40%. RECOMMENDATION: We will start Coreg. Continue lisinopril. We will add Lasix one to the IV and then p.o. from tomorrow. The patient will be cleared to go for surgery with condition. We will suggest followup echo to assess LV function remain low, consider AICD. We will follow with you. Thank you Dr. Rodriguez for providing me the opportunity in taking care of the patient, Monica Pinzon, with nonischemic cardiomyopathy. Gena Horowitz MD
--- NOTE | 2017-01-15 18:55 | CARD ---
APPROVED REPORT Procedure(s) performed: Left Heart Catheterization HISTORY 35%. (EF Method: Echocardiogram), chronic lung disease, tobacco history() : The patient is a current smoker , hypertension , Admitted with Chest Pain, SOB,Abnormal EF by [facility]ho and pre -op for Neck surgery. INDICATION The indication(s) include : chest pain, dyspnea. CASE TECHNIQUE The patient was brought electively to the Cardiac Catheterization Laboratory in a fasting state and was prepped and draped in a sterile manner. The right femoral groin was infiltrated with 2% Lidocaine subcutaneous anesthesia. A 6 Fr Glidesheath (Radial) sheath was inserted into the right femoral artery without difficulty. Coronary angiography was performed using coronary diagnostic catheters. The left coronary system was accessed and visualized with a Diagnostic ,5 Fr JL 3.5 catheter. The right coronary system was accessed and visualized with a Diagnostic ,5 Fr JR 4 catheter. The left ventricle was accessed and visualized with a 5 Fr Pigtail 145 (Angled) catheter. Left ventricular/Aortic Valve gradient assessed on pullback. Left ventriculogram was performed in CABALLERO projection. The patient tolerated the procedure well and there were no complications associated with the procedure. Left Radial attempted but unable to thread Wire so cath completed with Right Femoral Vessel Analysis The patient's coronary anatomy is right dominant. The left main coronary artery is a medium size vessel with intimal irregularities. The left main bifurcates to the left anterior descending and circumflex. The left anterior descending artery is a medium size vessel with diffuse calcification noted throughout this vessel and without significant stenosis. There is a 55% stenosis in the very distal segment. Non flow limiting The first diagonal branch is a medium size vessel with diffuse calcification noted throughout this vessel and without significant stenosis. The second diagonal branch is a small size vessel with diffuse calcification noted throughout this vessel and without significant stenosis. The circumflex artery is a large size vessel with intimal irregularities and without significant stenosis. The first obtuse marginal branch is a large size vessel with diffuse calcification noted throughout this vessel and without significant stenosis. The second obtuse marginal branch is a large size vessel with intimal irregularities and without significant stenosis. The right coronary artery is a medium size vessel with diffuse calcification noted throughout this vessel and without significant stenosis. The right posterior descending artery is a medium size vessel with diffuse calcification noted throughout this vessel and without significant stenosis. Left Ventricle The left ventricle is Borderline in size with mildly contractility. Non-Ischemic cardiomyopathy. The left ventricular ejection fraction is estimated to be 40-45%. The left ventricular end diastolic pressure is 20 mmHg. There was no gradient across the aortic valve upon pullback. Conclusion Mild Non obstructive CAD limited to very distal LAD Diffusely diseased non Flow limiting. Non IschemicCMP( Possibly Related to ETOH abuse in past) EF-40-45%, EDP-20 Recommendations Aggressive Medical TherapyCardiac Risk Reduction Program Beta ada, DAVION and diuretics Monitor LVFx. to assess Need for AICD. Pt is Ok to go for ENT surgery for remoival of Neck Mass if needed. CC; Dr. Rodriguez
--- NOTE | 2017-01-15 22:01 | PN ---
PULMONARY PROGRESS NOTE DATE: 01/15/2017 REFERRING PHYSICIAN: Fatimah Rodriguez MD SUBJECTIVE: She just came back from cardiac cath, was reported has no coronary artery disease, but cardiomyopathy with decreased LV function. Her breathing is little better, still has a mild cough. No nausea. No vomiting. No diarrhea. No leg pain or leg swelling. OBJECTIVE GENERAL: No acute distress. VITAL SIGNS: Temperature is 98, heart rate is 78, respiratory rate is 20, blood pressure 190/95, and pulse oximetry 97% on 100%room air. HEENT: Moist mucous membranes. Crowded airway. Mallampati score is IV. NECK: Supple. No JVD. LUNGS: Few crackles and scattered rhonchi. HEART: S1 and S2. ABDOMEN: Soft, nontender. No organomegaly. EXTREMITIES: No edema. NEUROLOGICAL: Awake and alert. Follow simple commands. MEDICATIONS: She is on hydralazine 10 mg q.i.d., p.r.n., Coreg 6.25 mg twice a day, DuoNeb q.i.d., Ecotrin 81 mg daily, Nicoderm patch daily, Norvasc 10 mg daily, Protonix 40 mg daily, Rocephin 1 g daily, Singulare 10 mg daily, IV fluid normal saline 100 mL per hour, Solu-Medrol 20 mg q. 12 hours, Tylenol on p.r.n. basis, Zestril 40 mg daily and Zithromax 500 mg daily. LABORATORY DATA: Shows, hemoglobin 12.6, hematocrit 36.8, WBC 13.5 and platelet is 301. Sodium 142, potassium 4.2, chloride 102, bicarbonate 30, BUN 17, creatinine 0.5, glucose 128, calcium 9.3, TSH 0.16 and cholesterol is 185. IMPRESSION AND PLAN: Chronic obstructive lung disease with exacerbation, active smoker, medullary leukocytosis, cardiomyopathy, found to have decreased left ventricular function. No coronary artery disease reported. This may be a component of sleep apnea syndrome. The patient was advised to stop smoking. Spoke to family at bedside. All the questions answered. Once improved, could be discharged. Need outpatient pulmonary function test and attend a sleep study. Follow up labs in the morning. Thank you and we will follow with you. Gena Trent MD [facility] # [id number]
[2017-01-15] MEDS ORDERED: MethylPREDNISolone 40 mg Vial IVP SCH (22:08)
[2017-01-16 07:41] LABS: BASO # 0.01 K/mm3 (0.0-2.0); BASO % 0.1 % (0.0-3.0); GRAN # 10.72 (1.4-6.5); GRAN % 78.9 % (50.0-68.0); LYMPH # 2.3 (1.2-3.4); LYMPH % 16.6 % (22.0-35.0); MEAN CORPUSCULAR HEMOGLOBIN 30.9 pg (25.0-35.0); MEAN CORPUSCULAR HGB CONC 34.3 g/dl (31.0-37.0); MEAN PLATELET VOLUME 9.5 fl (7.0-11.0); MONO # 0.6 (0.1-0.6); MONO % 4.4 % (1.0-6.0); RED CELL DISTRIBUTION WIDTH 13.4 % (11.5-14.5); WHITE BLOOD COUNT 13.6 10^3/ul (4.5-11.0)
[2017-01-16 08:02] LABS: ALB/GLOB RATIO 1.3 (1.1-1.8); ALKALINE PHOSPHATASE 59 U/L (38-126); ALT/SGPT 49 U/L (7-56); AST/SGOT 32 U/L (14-36); BILIRUBIN,TOTAL 0.6 mg/dL (0.2-1.3); BLOOD UREA NITROGEN 18 mg/dL (7-21); CALCIUM 8.7 mg/dL (8.4-10.5); CARBON DIOXIDE 28 mmol/L (21-33); CHLORIDE 103 mmol/L (98-107); GFR AFRICAN-AMERICAN > 60; GLUCOSE,RANDOM 100 mg/dL (70-110); MAGNESIUM 2.2 mg/dL (1.7-2.2); POTASSIUM 4.4 mmol/L (3.6-5.0); SODIUM 139 mmol/L (132-148); TOTAL PROTEIN 6.9 g/dL (5.8-8.3)
--- NOTE | 2017-01-16 08:19 | PN ---
DATE: 01/15/2017 SUBJECTIVE: The patient is seen and examined on the bedside. Looking comfortable. No nausea, vomiting, or diarrhea. No hematochezia. No swelling of the legs. No chest pain or palpitations. Cough is better. Shortness of breath is better. PHYSICAL EXAMINATION: VITAL SIGNS: Temperature 98, heart rate 115, respiratory rate 20, blood pressure 143/84, and pulse oximetry 93% on room air. HEENT: Head, normocephalic and atraumatic. Eyes, PERRLA. Extraocular muscles intact. Conjunctivae clear. Nose patent. Mucous membranes moist. NECK: Supple. No carotid bruits. No JVD or thyromegaly. CHEST: Bilaterally symmetrical. HEART: S1 and S2 positive. LUNGS: Clear to auscultation. ABDOMEN: Soft. Bowel sounds positive. No organomegaly. EXTREMITIES: No edema. No cyanosis. NEUROLOGICAL: The patient is awake and alert. Moving all 4 extremities. No focal deficits. MEDICATIONS: DuoNeb, Nicoderm patch, Norvasc, Plavix, Protonix, Singulair, Solu-Medrol, Tylenol, Zestril, and Zithromax. LABORATORY DATA: We do not have recent lab today, but reviewed old labs. ASSESSMENT AND PLAN: Ms. Monica Pinzon is 57 years old lady came with chest pain, chronic obstructive lung disease with exacerbation, active smoker, leukocytosis, cardiomyopathy with decreased left ventricular function, and abnormal EKG. The patient is getting tapering dose of steroids. The patient went for cardiac catheterization today by Dr. Horowitz. Cardiac catheterization revealed nonobstructive coronary artery disease, decreased left ventricular function, and ejection fraction 35% to 40%. Starting the patient on Coreg. Continue lisinopril. Add Lasix. Dr. Horowitz is recommending repeat echocardiography and if ejection fraction still stays low consider automatic implantable cardioverter-defibrillator. Gastrointestinal and deep venous thrombosis prophylaxis. Repeat labs. We will follow. Fatimah Rodriguez MD [facility]ITALIrma
[2017-01-16] MEDS: Albuterol-Ipratrop 3 mg / 0.5 (3 ml) UD IH SCH ×2 (08:23→11:24)
[2017-01-16] MEDS: cefTRIAXone 1 gm 1 GM/100 ML BAG IVPB SCH (09:30)
[2017-01-16] MEDS: Azithromycin 500MG/NS 250ml 500 MG/250 ML BAG IVPB SCH (09:30)
[2017-01-16] MEDS: Pantoprazole 40 mg EC Tab PO SCH (09:31)
[2017-01-16 12:23] VITALS: BP 142/81; PULSE 98; TEMP 98.8
--- NOTE | 2017-01-16 12:30 | PN ---
DATE: 01/16/2017 REASON FOR CONSULTATION: Followup shortness of breath, chest pain, decreased left ventricular function, unstable angina, preoperative clearance, status post cardiac catheterization, and nonobstructive coronary artery disease. SUBJECTIVE: The patient denies any chest pain, shortness of breath, or any palpitations. OBJECTIVE: GENERAL: Sitting with the , not in apparent distress. VITAL SIGNS: As follows, temperature is afebrile, heart rate is 67, and blood pressure is 140/79. HEENT: PERRLA intact. NECK: Supple. No carotid bruit. No thyromegaly. CHEST: Clear to auscultation. HEART: S1 and S2 regular. ABDOMEN: Soft. EXTREMITIES: Clubbing and cyanosis negative. LABORATORY DATA: WBC of 13.5, hemoglobin of 12.7, and hematocrit . Chemistry showed sodium of 139, potassium of 4.4, chloride of 103, carbon dioxide of 29, anion gap of 12, BUN of 18, creatinine of 0.5, and phosphorus of 5. TSH is 0.13. Triglycerides are 115, cholesterol of 185, LDL of 128, and HDL of 48. Hemoglobin A1c is pending. IMPRESSION: Preoperative clearance, chest pain, unstable angina, status post cardiac catheterization, nonobstructive coronary artery disease, left internal mammary artery to the distal left anterior descending, decreased left ventricular function by echocardiogram, ejection fraction 35%, by cardiac catheterization is on 45%, suggested MUGA scan. RECOMMENDATIONS: MUGA scan to assess LV function. Continue DAVION inhibitors. Continue gentle diuretic. Continue baby aspirin. Continue Coreg. Continue lisinopril. We will get the MUGA scan and we will discontinue telemetry. The patient can go home after the MUGA scan if they are discharged. Thank you Dr. Gamble for providing us the opportunity in taking care of the patient. We will follow with you. Gena Horowitz MD
--- NOTE | 2017-01-16 21:53 | CARD ---
APPROVED REPORT INDICATION COPD EXACERBATION,HYPOXIA,EKG CHANGES EVALUATE LV AND RV EF% PROCEDURE The above named patient recieved 26.4 millicuries of Tc99m tagged red blood cells intravenously. After achieving equilibrium, gated imaging of 16/frame/cycle was performed utillizing Gamma camera interfaced with a digital computer and gated device. Gated imaging was then performed in the left anterior oblique, anterior, and the left lateral projections. Findings Left Ventricle: The quality of the study is good. The left ventricle is mildly enlarged. The right ventricle is normal in size. Wall motion study shows good contractility of the left ventricle. RV wall motion is normal. The right atrium is dynamic. The remainder of the study is unremarkable. Impressions Normal gated wall motion of left ventricle wall. LVEF = 56%. Normal RV wall motion.
== END 2017-01-16 13:44 | disposition home or self-care (01) | DRG 191 ==
LOC: ED 12:21 → ERH 15:42 → 2RNO 18:15 → 2RSO 01-15 11:46
PROVIDERS: ADMIT Internal Medicine; ATTEND Internal Medicine
PROC: 4A023N7 Measurement of Cardiac Sampling and Pressure, Left Heart, Percutaneous Approach (ICD-10-PCS; principal; 2017-01-15)
PROC: B2151ZZ Fluoroscopy of Left Heart using Low Osmolar Contrast (ICD-10-PCS; 2017-01-15)
PROC: B2111ZZ Fluoroscopy of Multiple Coronary Arteries using Low Osmolar Contrast (ICD-10-PCS; 2017-01-15)
DX: J44.1 Chronic obstructive pulmonary disease with (acute) exacerbation (principal); I25.110 Atherosclerotic heart disease of native coronary artery with unstable angina pectoris; I42.9 Cardiomyopathy, unspecified; I47.1 Supraventricular tachycardia; I10 Essential (primary) hypertension; F17.210 Nicotine dependence, cigarettes, uncomplicated; D64.9 Anemia, unspecified; R73.9 Hyperglycemia, unspecified; Z86.12 Personal history of poliomyelitis

== ENCOUNTER 2017-05-08 10:35 | Emergency (ER) | payer OTHER ==
[2017-05-08 10:35] VITALS: BMI 25.9
[2017-05-08] MEDS ORDERED: Sodium Chloride 0.9% 1,000 ML IV STA (10:58)
[2017-05-08] MEDS ORDERED: DiphenhydrAMINE 50 mg/ml Inj IVP STA (10:58)
[2017-05-08 11:06] VITALS: TEMP 98.1; O2SAT 100
--- NOTE | 2017-05-08 11:09 | ED PDOC ---
Arrival/HPI - General Chief Complaint: Headache Time Seen by Provider: 05/08/17 10:56 Historian: Patient - History of Present Illness Narrative History of Present Illness (Text): 05/08/17 11:03 A 57 year old female, with an endorsed past medical history of recent sinusitis with double course antibiotics x 2 weeks, presents to the emergency department complaining of 2 week duration left sided headache with radiation to the neck and associated phonophobia and photophobia. The patient denies fevers, chills, dizziness, chest pain, shortness of breath, dyspnea on exertion, cough, abdominal pain, nausea, vomiting, diarrhea, back pain, neck pain, urinary/bowel changes, or any other complaint. Time/Duration: Other (2 weeks) Symptom Onset: Sudden Symptom Course: Unchanged Activities at Onset: Rest, Light Context: Home Past Medical History - Provider Review Nursing Documentation Reviewed: Yes - Past History Past History: No Previous - Infectious Disease Hx of Infectious Diseases: None - Cardiac Hx Cardiac Disorders: Yes Hx Hypertension: Yes - Pulmonary Hx Asthma: Yes - Neurological Hx Neurological Disorder: No - HEENT Hx HEENT Disorder: No - Renal Hx Renal Disorder: No - Endocrine/Metabolic Hx Endocrine Disorders: No - Hematological/Oncological Hx Blood Disorders: No - Integumentary Hx Dermatological Disorder: No - Musculoskeletal/Rheumatological Hx Musculoskeletal Disorders: No Hx Falls: No - Gastrointestinal Hx Gastrointestinal Disorders: No - Genitourinary/Gynecological Hx Genitourinary Disorders: No - Psychiatric Hx Psychophysiologic Disorder: No Hx Anxiety: No Hx Bipolar Disorder: No Hx Depression: No Hx Emotional Abuse: No Hx Hallucinations: No Hx Panic Disorder: No Hx Post Traumatic Stress Disorder: No Hx Psychosis: No Hx Physical Abuse: No Hx Schizophrenia: No Hx Sexual Abuse: No Hx Substance Use: No - Surgical History Hx Section: Yes Other/Comment: LLe sx for polio - Anesthesia Hx Anesthesia: Yes Hx Anesthesia Reactions: No Hx Malignant Hyperthermia: No - Suicidal Assessment Feels Threatened In Home Enviroment: No Family/Social History - Physician Review Nursing Documentation Reviewed: Yes Family/Social History: No Known Family HX Smoking Status: Light Smoker < 10 Cigarettes Daily Hx Alcohol Use: No Hx Substance Use: No Allergies/Home Meds Allergies/Adverse Reactions: Allergies No Known Allergies Allergy (Verified 05/08/17 10:47) Home Medications: Home Meds Medication Instructions Recorded Confirmed Albuterol Sulfate [Proair 2 puff INH Q6 PRN 01/12/17 05/08/17 Respiclick] Review of Systems - Physician Review All systems were reviewed & negative as marked: Yes - Review of Systems Constitutional: absent: Fevers, Night Sweats Respiratory: absent: SOB, Cough Cardiovascular: absent: Chest Pain Gastrointestinal: absent: Abdominal Pain, Stool Changes, Diarrhea, Nausea, Vomiting Genitourinary Female: absent: Urine Output Changes Musculoskeletal: Neck Pain. absent: Back Pain Neurological: Headache. absent: Dizziness Physical Exam Vital Signs Reviewed: Yes Vital Signs Temp Pulse Resp BP Pulse Ox 05/08/17 13:58 79 18 117/78 100 05/08/17 13:00 69 18 115/65 100 05/08/17 11:05 98.1 F 74 18 117/61 100 Temperature: Afebrile Blood Pressure: Normal Pulse: Regular Respiratory Rate: Normal Appearance: Positive for: Well-Appearing, Non-Toxic, Comfortable Pain Distress: None Mental Status: Positive for: Alert and Oriented X 3 - Systems Exam Head: Present: Atraumatic, Normocephalic Pupils: Present: PERRL Extroacular Muscles: Present: EOMI Conjunctiva: Present: Normal Mouth: Present: Moist Mucous Membranes Neck: Present: Normal Range of Motion (No nuchal rigidity) Respiratory/Chest: Present: Clear to Auscultation, Good Air Exchange. No: Respiratory Distress, Accessory Muscle Use Cardiovascular: Present: Regular Rate and Rhythm, Normal S1, S2. No: Murmurs Abdomen: Present: Normal Bowel Sounds. No: Tenderness, Distention, Peritoneal Signs Back: Present: Normal Inspection Upper Extremity: Present: Normal Inspection. No: Cyanosis, Edema Lower Extremity: Present: Normal Inspection. No: Edema Neurological: Present: GCS=15, CN II-XII Intact, Speech Normal, Other (No focal neurological symptoms.) Skin: Present: Warm, Dry, Normal Color. No: Rashes (Meningococcal rash ) Psychiatric: Present: Alert, Oriented x 3, Normal Insight, Normal Concentration Medical Decision Making ED Course and Treatment: 05/08/17 11:13 Impression: A 57 year old female presents to the emergency department complaining of 2 week duration migrainous headaches. Plan: -- Benadryl, Toradol, Reglan, and IV Fluids -- Reassess and disposition Progress Notes: 05/08/17 11:15: Benadryl, Toradol, Reglan will be given to patient. Will continue serial neurological exams. Will discharge patient when her symptoms improve. Will advise patient to follow up with PMD. PROCEDURE: CT HEAD WITHOUT CONTRAST. Dictator : Jace Upton MD Report Date : 05/08/2017 14:10:42 IMPRESSION: Normal CT of the Head. 05/08/17 15:12 serial neurological exams benign. pt feels better and ststes that headache is abated. will be discharged home w/ pmd f/u , course of fioricet prn. - RAD Interpretation Radiology Orders: 05/08/17 12:42 HEAD W/O CONTRAST [CT] Stat - Medication Orders Current Medication Orders: Discontinued Medications Acetaminophen (Tylenol 325mg Tab) 650 mg PO STAT STA Stop: 05/08/17 12:42 Last Admin: 05/08/17 13:15 Dose: 650 mg Dexamethasone (Decadron Inj) 10 mg IVP STAT STA Stop: 05/08/17 12:42 Last Admin: 05/08/17 13:15 Dose: 10 mg IVP Administration Document 05/08/17 13:15 HI (Rec: 05/08/17 13:33 [id number] Charges for Administration # of IVP Administrations 1 Diphenhydramine HCl (Benadryl) 25 mg IVP STAT STA Stop: 05/08/17 10:59 Last Admin: 05/08/17 11:25 Dose: 25 mg IVP Administration Document 05/08/17 11:25 HI (Rec: 05/08/17 11:38 [id number] Charges for Administration # of IVP Administrations 1 Sodium Chloride (Sodium Chloride 0.9%) 1,000 mls @ 999 mls/hr IV .Q1H1M STA Stop: 05/08/17 11:58 Last Admin: 05/08/17 11:25 Dose: 999 mls/hr eMAR Start Stop Document 05/08/17 11:25 HI (Rec: 05/08/17 11:38 [id number]) Intravenous Solution Start Date 05/08/17 Start Time 11:25 Metoclopramide HCl 20 mg/ (Sodium Chloride) 54 mls @ 108 mls/hr IVP .Q30M ONE Stop: 05/08/17 11:59 Last Admin: 05/08/17 11:39 Dose: 108 mls/hr IVP Administration Document 05/08/17 11:39 HI (Rec: 05/08/17 11:40 [id number]) Charges for Administration # of IVP Administrations 1 Magnesium Sulfate 2 gm/ Sodium (Chloride) 104 mls @ 102 mls/hr IVPB ONCE ONE Stop: 05/08/17 13:43 Last Admin: 05/08/17 13:15 Dose: 102 mls/hr eMAR Start Stop Document 05/08/17 13:15 HI (Rec: 05/08/17 13:34 HI [id number]) Intravenous Solution Start Date 05/08/17 Start Time 13:15 Ketorolac Tromethamine (Toradol) 30 mg IVP STAT STA Stop: 05/08/17 10:59 Last Admin: 05/08/17 11:25 Dose: 30 mg MAR Pain Assessment Document 05/08/17 11:25 HI (Rec: 05/08/17 11:39 [id number]) Pain Reassessment Is this a pain reassessment? No IVP Administration Document 05/08/17 11:25 HI (Rec: 05/08/17 11:39 [id number]) Charges for Administration # of IVP Administrations 1 Re-Assess: MAR Pain Assessment Document 05/08/17 12:25 HI (Rec: 05/08/17 12:59 [facility] [id number]) Pain Reassessment Is this a pain reassessment? Yes Sleep Is patient sleeping during reassessment? No Presence of Pain Presence of Pain Yes - Scribe Statement The provider has reviewed the documentation as recorded by the Scribe Kiera Rodriguez Provider Scribe Attestation: All medical record entries made by the Scribe were at my direction and personally dictated by me. I have reviewed the chart and agree that the record accurately reflects my personal performance of the history, physical exam, medical decision making, and the department course for this patient. I have also personally directed, reviewed, and agree with the discharge instructions and disposition. Disposition/Present on Arrival - Present on Arrival Any Indicators Present on Arrival: No History of DVT/PE: No History of Uncontrolled Diabetes: No Urinary Catheter: No History of Decub. Ulcer: No History Surgical Site Infection Following: None - Disposition Have Diagnosis and Disposition been Completed?: Yes Diagnosis: Migraine Disposition: HOME/ ROUTINE Disposition Time: 15:14 Patient Plan: Discharge Condition: GOOD Discharge Instructions (ExitCare): Migraine Headache (ED) Print Language: PORTUGUESE Additional Instructions: Please maiantain a headasche diary as we discussed. The [employer] has a very easy to print and useable template that prompt you to document the what/where/when and how of your headaches. TAKE THE FIORICET NEEDED. iF YOUR SYMPTOMS WORSEN THEN PLEASE RETURN FOR further evaluation. Prescriptions: Acetaminophen/Butalbital/Caf [Fioricet] 1 tab PO Q8 PRN #16 tab PRN Reason: Headache Referrals: Fatimah Rodriguez MD [Primary Care Provider] - Follow up with primary Forms: [employer] (German)
[2017-05-08] MEDS ORDERED: Magnesium Sulfate 2 GM in Sodium Chloride 0.9% 100 ML IVPB ONE (12:42)
--- NOTE | 2017-05-08 14:12 | CT ---
PROCEDURE: CT HEAD WITHOUT CONTRAST. HISTORY: headache of unusual chracter COMPARISON: None available. TECHNIQUE: Axial computed tomography images were obtained through the head/brain without intravenous contrast. Radiation dose: Total exam DLP = 860 mGy-cm. This CT exam was performed using one or more of the following dose reduction techniques: Automated exposure control, adjustment of the mA and/or kV according to patient size, and/or use of iterative reconstruction technique. FINDINGS: HEMORRHAGE: No intracranial hemorrhage. BRAIN: No mass effect or edema. No atrophy or chronic microvascular ischemic changes. VENTRICLES: Unremarkable. No hydrocephalus. CALVARIUM: Unremarkable. PARANASAL SINUSES: Unremarkable as visualized. No significant inflammatory changes. MASTOID AIR CELLS: Unremarkable as visualized. No inflammatory changes. OTHER FINDINGS: None. IMPRESSION: Normal CT of the Head.
[2017-05-08 15:34] VITALS: BP 115/87; PULSE 80; RESP 16
== END 2017-05-08 15:31 | disposition home or self-care (01) ==
LOC: ED 10:35
DX: G43.909 Migraine, unspecified, not intractable, without status migrainosus (principal); I10 Essential (primary) hypertension; F17.210 Nicotine dependence, cigarettes, uncomplicated
CPT/HCPCS: 70450; 96374; 96375; 99285; J1100; J1200; J1885; J2765; J3475; J7040

== ENCOUNTER 2017-09-14 12:39 | Emergency (ER) | payer BC ==
[2017-09-14 12:40] VITALS: BMI 25.9
[2017-09-14 12:50] VITALS: RESP 18
[2017-09-14] MEDS ORDERED: Tobramycin 0.3% OPHT SOLN OU STA (13:06)
--- NOTE | 2017-09-14 13:14 | ED PDOC ---
Arrival/HPI - General Chief Complaint: Eye Problem Time Seen by Provider: 09/14/17 13:06 Historian: Patient - History of Present Illness Narrative History of Present Illness (Text): 09/14/17 13:06 Monica Pinzon is a 57 year old female who presents to the emergency department complaining of bilateral pink eye since yesterday. Patient notes that itchiness began in her right eye then spreading to her left. Patient states that she woke up this morning with both her eyes sealed by crustiness. No other complaints offered at this time. Denies eye pain or vision change. Time/Duration: < week Symptom Onset: Gradual Symptom Course: Unchanged Activities at Onset: Light Context: Home Past Medical History - Provider Review Nursing Documentation Reviewed: Yes - Past History Past History: No Previous - Infectious Disease Hx of Infectious Diseases: None - Cardiac Hx Cardiac Disorders: Yes Hx Hypertension: Yes - Pulmonary Hx Asthma: Yes - Neurological Hx Neurological Disorder: No - HEENT Hx HEENT Disorder: No - Renal Hx Renal Disorder: No - Endocrine/Metabolic Hx Endocrine Disorders: No - Hematological/Oncological Hx Blood Disorders: No - Integumentary Hx Dermatological Disorder: No - Musculoskeletal/Rheumatological Hx Musculoskeletal Disorders: No Hx Falls: No - Gastrointestinal Hx Gastrointestinal Disorders: No - Genitourinary/Gynecological Hx Genitourinary Disorders: No - Psychiatric Hx Psychophysiologic Disorder: No Hx Anxiety: No Hx Bipolar Disorder: No Hx Depression: No Hx Emotional Abuse: No Hx Hallucinations: No Hx Panic Disorder: No Hx Post Traumatic Stress Disorder: No Hx Psychosis: No Hx Physical Abuse: No Hx Schizophrenia: No Hx Sexual Abuse: No Hx Substance Use: No - Surgical History Hx Section: Yes Other/Comment: LLe sx for polio - Anesthesia Hx Anesthesia: Yes Hx Anesthesia Reactions: No Hx Malignant Hyperthermia: No - Suicidal Assessment Feels Threatened In Home Enviroment: No Family/Social History - Physician Review Nursing Documentation Reviewed: Yes Family/Social History: No Known Family HX Smoking Status: Light Smoker < 10 Cigarettes Daily Hx Alcohol Use: No Hx Substance Use: No Allergies/Home Meds Allergies/Adverse Reactions: Allergies No Known Allergies Allergy (Verified 09/14/17 12:51) Review of Systems - Physician Review All systems were reviewed & negative as marked: Yes - Review of Systems Constitutional: absent: Fevers, Night Sweats Eyes: Other (bilateral pink eye). absent: Vision Changes ENT: absent: Hearing Changes Respiratory: absent: SOB, Cough Cardiovascular: absent: Chest Pain Gastrointestinal: absent: Abdominal Pain Genitourinary Female: absent: Dysuria Musculoskeletal: absent: Arthralgias Skin: absent: Rash, Pruritis Neurological: absent: Headache Endocrine: absent: Diaphoresis Hemo/Lymphatic: absent: Adenopathy Physical Exam - Physical Exam Narrative Physical Exam (Text): Constitutional: No acute distress. Head: Normocephalic. Atraumatic. Eyes: Bilateral conjunctival injection, right worse than left. Discharge of pus. PERRL. EOMI. ENT: Moist mucous membranes. Neck: Supple. Cardiovascular: Regular rate. Chest: No tenderness. Respiratory: Clear to auscultation bilaterally. GI: Soft. Nontender. Nondistended. Back: No CVA tenderness. Musculoskeletal: No tenderness or swelling of extremities. Skin: No rash. Neurologic: Alert, no focal deficit. Vital Signs Reviewed: Yes Vital Signs Temp Pulse Resp BP Pulse Ox 09/14/17 13:27 98.6 F 72 18 123/79 99 09/14/17 12:48 98 F 77 18 129/85 98 Temperature: Afebrile Blood Pressure: Normal Pulse: Regular Respiratory Rate: Normal Appearance: Positive for: Well-Appearing, Non-Toxic, Comfortable Pain Distress: None Mental Status: Positive for: Alert and Oriented X 3 Medical Decision Making ED Course and Treatment: 09/14/17 13:30 Impression: 57 year old female complaining of bilateral pink eye since yesterday. Plan: -- Tobramycin -- Reassess and disposition Prior Visits: Notes and results from previous visits were reviewed. Patient was last seen in the emergency department on 05/08/17 for 2 week duration left sided headache with radiation to the neck and associated phonophobia and photophobia. Patient was discharged home. - Medication Orders Current Medication Orders: Discontinued Medications Tobramycin Sulfate (Tobrex 0.3% Ophth Soln) 1 drop OU STAT STA Stop: 09/14/17 13:07 Last Admin: 09/14/17 13:17 Dose: 1 drop - Scribe Statement The provider has reviewed the documentation as recorded by the Andi Proctor Provider Scribe Attestation: All medical record entries made by the Gemmaibsushma were at my direction and personally dictated by me. I have reviewed the chart and agree that the record accurately reflects my personal performance of the history, physical exam, medical decision making, and the department course for this patient. I have also personally directed, reviewed, and agree with the discharge instructions and disposition. Disposition/Present on Arrival - Present on Arrival Any Indicators Present on Arrival: No History of DVT/PE: No History of Uncontrolled Diabetes: No Urinary Catheter: No History of Decub. Ulcer: No History Surgical Site Infection Following: None - Disposition Have Diagnosis and Disposition been Completed?: Yes Diagnosis: Conjunctivitis Disposition: HOME/ ROUTINE Disposition Time: 13:20 Patient Plan: Discharge Condition: STABLE Discharge Instructions (ExitCare): Conjunctivitis ([place]) Prescriptions: Tobramycin 0.3% [Tobramycin 5 Ml] 1 drop OU Q4H #1 bottle Referrals: Sher Burton MD [Staff Provider] - Follow up with primary Forms: [employer] (Dominican), WORK NOTE
[2017-09-14 13:28] VITALS: BP 123/79; PULSE 72; TEMP 98.6; O2SAT 99
== END 2017-09-14 13:27 | disposition home or self-care (01) ==
LOC: ED 12:39
DX: H10.9 Unspecified conjunctivitis (principal); I10 Essential (primary) hypertension; F17.210 Nicotine dependence, cigarettes, uncomplicated

== ENCOUNTER 2018-01-09 06:13 | Observation (INO) | payer BC ==
[2018-01-09 07:21] LABS: BASO # 0.03 K/mm3 (0.0-2.0); BASO % 0.3 % (0.0-3.0); EOS # 0.4 (0.0-0.7); EOS % 4.4 % (1.5-5.0); GRAN # 4.63 (1.4-6.5); GRAN % 53.1 % (50.0-68.0); HEMOGLOBIN 12.6 g/dL (12.0-16.0); LYMPH % 34.8 % (22.0-35.0); MEAN CORPUSCULAR HEMOGLOBIN 30.7 pg (25.0-35.0); MEAN CORPUSCULAR HGB CONC 33.4 g/dl (31.0-37.0); MEAN PLATELET VOLUME 9.7 fl (7.0-11.0); MONO # 0.7 (0.1-0.6); MONO % 7.4 % (1.0-6.0); RBC 4.1 10^6/uL (3.5-6.1); RED CELL DISTRIBUTION WIDTH 13.3 % (11.5-14.5); WHITE BLOOD COUNT 8.7 10^3/ul (4.5-11.0)
[2018-01-09 07:29] LABS: INR 0.93; PARTIAL THROMBOPLASTIN TIME 31.6 Seconds (25.1-36.5); PROTHROMBIN TIME 10.7 SECONDS (9.4-12.5)
[2018-01-09 07:32] LABS: BLOOD UREA NITROGEN 11 mg/dL (7-21); GFR NON-AFRICAN AMERICAN > 60
[2018-01-09 07:33] LABS: ALB/GLOB RATIO 1.4 (1.1-1.8); ALBUMIN 4.4 g/dL (3.0-4.8); ALT/SGPT 23 U/L (7-56); AST/SGOT 29 U/L (14-36); CALCIUM 9.6 mg/dL (8.4-10.5)
[2018-01-09 07:43] LABS: TROPONIN I < 0.01 ng/mL
--- NOTE | 2018-01-09 07:43 | ED PDOC ---
Arrival/HPI - General Historian: Patient - General Chief Complaint: Chest Pain Time Seen by Provider: 01/09/18 07:28 - History of Present Illness Narrative History of Present Illness (Text): 01/09/18 07:37 Patient is a 57 year old female with a past medical history of COPD, Polio and a "weak heart" presenting with intermittent palpitations, lightheadedness and chest pain x 1 week. The chest pain is described as a left sided pressure that is worsened with any activity. She is normally able to walk a few blocks without becoming short of breath, but for the past week, she is getting increasing short of breath. She is not able to walk to the bathroom or wash dishes without becoming short of breath. The chest pain is also associated with palpitations, feeling like her heart is "racing and beating abnormally". She also is experiencing episodes of lightheadedness and numbness down both of her arms associated with the chest pain and palpitations. She has become nauseous at time but has not vomited. She decided to come to the hospital today because she her symptoms are continuing to get worse. Denies fevers, chills, diarrhea, constipation, abdominal pain or recent travel. PMD: Dr. Rodriguez Dock Worker: Dr. Horowitz (Petey,Zaid) Past Medical History - Provider Review Nursing Documentation Reviewed: Yes - Past History Past History: No Previous - Infectious Disease Hx of Infectious Diseases: None - Cardiac Hx Cardiac Disorders: Yes Hx Hypertension: Yes - Pulmonary Hx Asthma: Yes - Neurological Hx Neurological Disorder: No - HEENT Hx HEENT Disorder: No - Renal Hx Renal Disorder: No - Endocrine/Metabolic Hx Endocrine Disorders: No - Hematological/Oncological Hx Blood Disorders: No - Integumentary Hx Dermatological Disorder: No - Musculoskeletal/Rheumatological Hx Musculoskeletal Disorders: No Hx Falls: No - Gastrointestinal Hx Gastrointestinal Disorders: No - Genitourinary/Gynecological Hx Genitourinary Disorders: No - Psychiatric Hx Psychophysiologic Disorder: No Hx Anxiety: No Hx Bipolar Disorder: No Hx Depression: No Hx Emotional Abuse: No Hx Hallucinations: No Hx Panic Disorder: No Hx Post Traumatic Stress Disorder: No Hx Psychosis: No Hx Physical Abuse: No Hx Schizophrenia: No Hx Sexual Abuse: No Hx Substance Use: No - Surgical History Hx Section: Yes Other/Comment: LLe sx for polio - Anesthesia Hx Anesthesia: Yes Hx Anesthesia Reactions: No Hx Malignant Hyperthermia: No - Suicidal Assessment Feels Threatened In Home Enviroment: No Family/Social History - Physician Review Nursing Documentation Reviewed: Yes Family/Social History: Unknown Family HX Smoking Status: Light Smoker < 10 Cigarettes Daily Hx Alcohol Use: No Hx Substance Use: No Allergies/Home Meds Allergies/Adverse Reactions: Allergies No Known Allergies Allergy (Verified 09/14/17 12:51) Home Medications: Home Meds Medication Instructions Recorded Confirmed Atorvastatin Calcium 10 mg PO DAILY 01/09/18 01/09/18 Carvedilol [Coreg] 6.25 mg PO BID 01/09/18 01/09/18 Folic Acid 1 mg PO DAILY 01/09/18 01/09/18 Losartan Potassium [Cozaar] 100 mg PO DAILY 01/09/18 01/09/18 Review of Systems - Physician Review All systems were reviewed & negative as marked: Yes - Review of Systems Constitutional: Fatigue. absent: Fevers Eyes: Normal. absent: Vision Changes ENT: Normal Respiratory: Normal, SOB. absent: Cough, Sputum, Wheezing Cardiovascular: Chest Pain, Palpitations, COMBS. absent: Edema, Calf Pain, Orthopnea, Syncope Gastrointestinal: Nausea. absent: Abdominal Pain, Stool Changes, Constipation, Diarrhea, Vomiting Musculoskeletal: Normal. absent: Back Pain, Neck Pain Skin: Normal. absent: Rash, Skin Lesions, Laceration Neurological: Normal. absent: Headache, Dizziness Endocrine: Normal. absent: Diaphoresis Hemo/Lymphatic: Normal. absent: Adenopathy Psychiatric: Normal. absent: Anxiety, Depression Physical Exam Vital Signs Reviewed: Yes Temperature: Afebrile Blood Pressure: Hypertensive Pulse: Regular Respiratory Rate: Normal Appearance: Positive for: Well-Appearing, Non-Toxic, Comfortable Pain Distress: None Mental Status: Positive for: Alert and Oriented X 3 - Systems Exam Head: Present: Atraumatic, Normocephalic Extroacular Muscles: Present: EOMI Conjunctiva: Present: Normal Mouth: Present: Moist Mucous Membranes Nose (External): Present: Atraumatic Nose (Internal): Present: Normal Inspection, No Active Bleeding, Moist Neck: Present: Normal Range of Motion Respiratory/Chest: Present: Clear to Auscultation, Good Air Exchange. No: Respiratory Distress, Accessory Muscle Use Cardiovascular: Present: Regular Rate and Rhythm, Normal S1, S2, Peripheal Pulses Present. No: Murmurs Abdomen: No: Tenderness, Distention, Peritoneal Signs Upper Extremity: Present: Normal Inspection, NORMAL PULSES, Capillary Refill < 2s. No: Cyanosis, Edema Lower Extremity: Present: NORMAL PULSES, Capillary Refill < 2 s. No: Normal Inspection (left leg smaller than right (baseline - hx of polio)), Edema, CALF TENDERNESS, Tenderness Neurological: Present: GCS=15, Speech Normal, Motor Func Grossly Intact Skin: Present: Warm, Dry, Normal Color. No: Rashes Lymphatic: No: Cervical Adenopathy Psychiatric: Present: Alert, Oriented x 3, Normal Insight, Normal Concentration Vital Signs Temp Pulse Resp BP Pulse Ox 01/09/18 10:34 97.5 F L 70 17 164/97 H 97 01/09/18 10:19 97.5 F L 70 16 164/97 H 97 01/09/18 10:16 70 164/97 H 01/09/18 07:19 97.6 F 79 16 162/83 H 99 01/09/18 06:56 97.8 F 80 18 166/87 H 99 Medical Decision Making Re-evaluation Time: 08:14 Reassessment Condition: Re-examined, Unchanged - Lab Interpretations I have reviewed the lab results: Yes - EKG Interpretation Interpreted by ED Physician: Yes Type: 12 lead EKG Comparison: Similar to previous EKG (08/26/16) ED Course and Treatment: 01/09/18 07:[address] Horowitz ([facility]'s [facility] office supervisor) around 7:30 due to abnormal EKG. EKG was sent to Dr. Horowitz, who returned phone call and stated that patient has previous history of LBBB on EKG - seen on August 26, 2016. This is not a Code Heart. Labs reviewed - negative troponin 01/09/18 08:14 CXR - shows no acute disease Call placed to Dr. Rodriguez for admission 01/09/18 08:33 Dr. Rodriguez accepts patient to her service. Requests admission to telemetry, consult Dr. Horowitz (cardiology) and troponin x3 (Zaid Angelo) Patient is a 57 year old female, whose past medical history includes COPD, polio , and "weak heart", presenting to the ER with intermittent palpitations, left- side pressured chest pain, and lightheadedness. Physical exam shows patient is hypertensive; no respiratory distress, heart and lung examination normal; no other acute findings on examination. Patient Seen with Resident: In agreement with resident note which contains more details about the patient. Patient seen and evaluated with resident. Came up with plan and treatment together. (Raphael Michaels) - Lab Interpretations Lab Results: 01/09/18 06:30 01/09/18 06:30 Lab Results 01/09/18 06:30: Sodium 140, Potassium 4.6, Chloride 103, Carbon Dioxide 28, Anion Gap 13, BUN 11, Creatinine 0.6 L, Est GFR ( Amer) > 60, Est GFR ( Non-Af Amer) > 60, Random Glucose 97, Calcium 9.6, Total Bilirubin 0.3, AST 29, ALT 23, Alkaline Phosphatase 71, Lactate Dehydrogenase 464, Total Creatine Kinase 76, Troponin I < 0.01, Total Protein 7.7, Albumin 4.4, Globulin 3.3, Albumin/Globulin Ratio 1.4 01/09/18 06:30: PT 10.7, INR 0.93, APTT 31.6 01/09/18 06:30: WBC 8.7 D, RBC 4.10, Hgb 12.6, Hct 37.7, MCV 92.0, MCH 30.7, MCHC 33.4, RDW 13.3, Plt Count 307, MPV 9.7, Gran % 53.1, Lymph % (Auto) 34.8, Parmer % (Auto) 7.4 H, Eos % (Auto) 4.4, Baso % (Auto) 0.3, Gran # 4.63, Lymph # ( Auto) 3.0, Parmer # (Auto) 0.7 H, Eos # (Auto) 0.4, Baso # (Auto) 0.03 - RAD Interpretation Radiology Orders: 01/09/18 07:46 CXR [CHEST PORTABLE] [RAD] Stat - EKG Interpretation EKG Interpretation (Text): 01/09/18 08:15 NSR @88bpm, left axis deviation, LBBB, flipped t-waves in leads I and aVL - similar EKG on 08/26/16. EKG called and discussed with patient's [facility] office supervisor, Dr. Horowitz. No changes at this time. (Zaid Angelo) - Medication Orders Current Medication Orders: Atorvastatin Calcium (Lipitor) 10 mg PO DAILY [facility] Last Admin: 01/09/18 10:11 Dose: 10 mg Carvedilol (Coreg) 6.25 mg PO BID [facility] Last Admin: 01/09/18 10:16 Dose: 6.25 mg MAR Pulse and Blood Pressure Document 01/09/18 10:16 [facility] (Rec: 01/09/18 10:16 [id number]) Pulse Pulse Rate (60-90) 70 Blood Pressure Blood Pressure (100/60-150/90) 164/97 Losartan Potassium (Cozaar) 100 mg PO DAILY [facility] Last Admin: 01/09/18 10:11 Dose: 100 mg Disposition/Present on Arrival - Present on Arrival Any Indicators Present on Arrival: No History of DVT/PE: No History of Uncontrolled Diabetes: No Urinary Catheter: No History of Decub. Ulcer: No History Surgical Site Infection Following: None - Disposition Have Diagnosis and Disposition been Completed?: Yes Disposition Time: 08:33 Patient Plan: Admission, Telemetry - Disposition Diagnosis: Chest pain, Abnormal EKG Disposition: HOSPITALIZED Patient Problems: Current Active Problems Problem Status Onset Chest pain Acute Abnormal EKG Acute Condition: GUARDED
--- NOTE | 2018-01-09 09:33 | RAD ---
Date of service: 01/09/2018 HISTORY: chest pain COMPARISON: 01/12/2017 FINDINGS: LUNGS: No active pulmonary disease. PLEURA: No significant pleural effusion identified, no pneumothorax apparent. CARDIOVASCULAR: Normal. OSSEOUS STRUCTURES: No significant abnormalities. VISUALIZED UPPER ABDOMEN: Normal. OTHER FINDINGS: None. IMPRESSION: No active disease.
[2018-01-09 13:43] VITALS: BMI 26.3
--- NOTE | 2018-01-09 15:48 | CON ---
DATE: 01/09/2018 BRIEF CLINICAL HISTORY: This is a 57-year-old female came to the Emergency Room with complaint of nausea, vomiting and chest pain on vomiting. Cardiology consult was called because the patient was found to be in bundle-branch block. She was concerned about old or new left bundle. PAST HISTORY: Significant for nonobstructive coronary artery disease, COPD, history of polio in the past, history of cardiac catheterization in the past. RECENT CARDIAC WORKUP: As follows; the patient had a cardiac catheterization on 01/15/2017 that revealed mild nonobstructive coronary artery disease, limited only to very distal LAD diffusely diseased, non-flow limiting. Nonischemic cardiomyopathy, possibly related to alcohol abuse in the past. Ejection fraction 40-45%. EDP within the range of 20. Later on, the patient had a MUGA scan done on 01/16/2017 that revealed ejection fraction of 56%. Normal RV. The patient had echocardiography done on 01/13/2017, that revealed ejection fraction 35%, trace aortic regurgitation, [id number] mitral regurgitation, trace tricuspid regurgitation, RV systolic pressure of 31. Previous EKG reviewed. EKG in the system dated 08/26/2016, left bundle-branch block, so the new bundle-branch block that has been describing old. SOCIAL HISTORY: History of alcohol abuse in the past when the patient was young. No history of smoking. CURRENT MEDICATIONS: The patient is taking losartan, folic acid, carvedilol, atorvastatin. ALLERGIES: NO KNOWN DRUG ALLERGIES. REVIEW OF SYSTEMS: As per HPI. PHYSICAL EXAMINATION: VITAL SIGNS: Height of the patient is 5 feet 3 inches. Weight of the patient is 180 pounds. Body mass index 31.9 kg/m2. LABORATORY DATA: Blood workup; WBC 8.7, hemoglobin 12.6, hematocrit 37.7, platelet count 307. Chemistry shows sodium 140, potassium 4.6, chloride 103, carbon dioxide 28, anion gap of 13, BUN 11, creatinine 0.6. Troponin 0.01. EKG shows normal sinus rhythm, left bundle-branch block. IMPRESSION: Chest pain, atypical. No evidence of acute myocardial infarction, left bundle-branch block. The patient had an EKG, which showed left bundle-branch block, which is not new since 08/26/2016. History of cardiac catheterization in 2017 and found to be nonobstructive coronary artery disease. Decreased left ventricular function possibly related to alcohol abuse. History of recent MUGA scan done that revealed normal left ventricular ejection fraction 56%. RECOMMENDATIONS: Followup serial CPK, troponin. Continue IV fluid. We will start medication. Baseline lipid profile, TSH, hemoglobin A1c. We will follow with you. We will review if any echo was done. If not done in the last six months, we will repeat the echo. Thank you, Dr. Rodriguez, for providing us the opportunity in taking care of the patient, Monica Pinzon. Gena Horoiwtz MD MTDIrma
--- NOTE | 2018-01-09 20:56 | CARD ---
APPROVED REPORT Date of service: 01/09/2018 EKG Measurement Heart [id number] <Conclusion> Normal sinus rhythm Left bundle branch block Abnormal ECG
[2018-01-10 06:44] LABS: ALB/GLOB RATIO 1.3 (1.1-1.8); ALBUMIN 4.5 g/dL (3.0-4.8); ALT/SGPT 25 U/L (7-56); AST/SGOT 28 U/L (14-36); BLOOD UREA NITROGEN 11 mg/dL (7-21); CALCIUM 9.5 mg/dL (8.4-10.5); GFR NON-AFRICAN AMERICAN > 60; HDL CHOLESTEROL 44 mg/dL (29-60)
[2018-01-10 06:54] LABS: LDL CHOLESTEROL 75 mg/dL (0-129)
[2018-01-10 07:02] LABS: BASO # 0.04 K/mm3 (0.0-2.0); BASO % 0.5 % (0.0-3.0); EOS # 0.3 (0.0-0.7); EOS % 4.3 % (1.5-5.0); GRAN # 4.19 (1.4-6.5); GRAN % 53.1 % (50.0-68.0); HEMOGLOBIN 13.8 g/dL (12.0-16.0); LYMPH # 2.6 (1.2-3.4); LYMPH % 32.5 % (22.0-35.0); MEAN CELL VOLUME 90.4 fl (80.0-105.0); MEAN CORPUSCULAR HEMOGLOBIN 30.9 pg (25.0-35.0); MEAN CORPUSCULAR HGB CONC 34.2 g/dl (31.0-37.0); MEAN PLATELET VOLUME 9.7 fl (7.0-11.0); MONO # 0.8 (0.1-0.6); MONO % 9.6 % (1.0-6.0); RBC 4.47 10^6/uL (3.5-6.1); RED CELL DISTRIBUTION WIDTH 13.1 % (11.5-14.5); WHITE BLOOD COUNT 7.9 10^3/ul (4.5-11.0)
[2018-01-10 07:47] VITALS: BP 152/86; RESP 19; TEMP 97.9; O2SAT 95
--- NOTE | 2018-01-10 10:27 | CP.PCM.PN ---
Subjective - Date & Time of Evaluation Date of Evaluation: 01/10/18 Time of Evaluation: 06:50 - Subjective Subjective: Awake, anxious,wanted to go home awaiting Echo to be done Reason for consultation and follow up: Cardiac evaluation for chest pain Seen and examined by me and Dr. Horowitz Objective - Vital Signs/Intake and Output Vital Signs (last 24 hours): Temp Pulse Resp BP Pulse Ox 97.9 F 42 L 19 152/86 H 95 01/10/18 07:47 01/10/18 09:44 01/10/18 07:47 01/10/18 09:44 01/10/18 07:47 Intake and Output: 01/10/18 01/10/18 06:59 18:59 Intake Total 740 Balance 740 - Medications Medications: Current Medications Aspirin (Aspirin Chewable) 81 mg PO DAILY [facility] Last Admin: 01/10/18 09:44 Dose: 81 mg Atorvastatin Calcium (Lipitor) 10 mg PO DAILY [facility] Last Admin: 01/10/18 09:44 Dose: 10 mg Carvedilol (Coreg) 6.25 mg PO BID [facility] Last Admin: 01/10/18 09:44 Dose: 6.25 mg Folic Acid (Folic Acid) 1 mg PO DAILY [facility] Last Admin: 01/10/18 09:44 Dose: 1 mg Furosemide (Lasix) 40 mg PO DAILY [facility] Losartan Potassium (Cozaar) 100 mg PO DAILY [facility] Last Admin: 01/10/18 09:44 Dose: 100 mg Nicotine (Nicoderm Cq) 1 patch TD DAILY [facility] Last Admin: 01/10/18 09:44 Dose: 1 patch Spironolactone (Aldactone) 25 mg PO DAILY [facility] Last Admin: 01/10/18 09:44 Dose: 25 mg - Labs Labs: 01/10/18 05:30 01/10/18 05:30 PT 10.7 SECONDS (9.4-12.5) 01/09/18 06:30 INR 0.93 01/09/18 06:30 APTT 31.6 Seconds (25.1-36.5) 01/09/18 06:30 - Constitutional Appears: No Acute Distress - Head Exam Head Exam: NORMOCEPHALIC - Eye Exam Eye Exam: Normal appearance - ENT Exam ENT Exam: Mucous Membranes Moist - Respiratory Exam Respiratory Exam: Decreased Breath Sounds, Clear to Ausculation Bilateral, NORMAL BREATHING PATTERN - Cardiovascular Exam Cardiovascular Exam: REGULAR RHYTHM, +S1, +S2 Additional comments: denies chest pain - GI/Abdominal Exam GI & Abdominal Exam: Soft, Normal Bowel Sounds - Extremities Exam Extremities Exam: Normal Capillary Refill - Neurological Exam Neurological Exam: Alert, Awake, Oriented x3 - Psychiatric Exam Psychiatric exam: Anxious - Skin Skin Exam: Intact, Warm Assessment and Plan - Assessment and Plan (Free Text) Assessment: A 58 year old female, who came in to the ER due to nausea and vomiting with chest pain. EKG showed bundle branch block. History of non obstructive coronary artery disease,last (cardiac cath 01/15/2017), LAD diffusely diseased non-flow limiting.non-ischemic cardiomyopathy LVEF 40-45%.History of alcohol abuse when young. COPD. Atypical chest pain. Troponin normal. For Echo today.Denies any chest pain now. EKG bundle branch block, not new since 08/2016. no evidence if ischemia, Plan: Denies any chest pain now, no nausea and vomiting, drinking coffee Troponin normal x 3 No evidence of ischemia Blood pressure and heart rate stable Awaiting Echo to be done today Very anxious to go home today Today [birth year] her birthday May discharge from cardiac standpoint Follow up in office 1-2 weeks Continue current treatment Continue current medications Plan and treatment discussed with Dr. Horowitz
[2018-01-10 12:56] VITALS: PULSE 89
--- NOTE | 2018-01-10 18:08 | CARD ---
APPROVED REPORT Date of service: 01/10/2018 EXAM: Two-dimensional and M-mode echocardiogram with Doppler and color Doppler. INDICATION LV Function:SystolicDiastolic Chest Pain 2D DIMENSIONS Left Atrium (2D)3.1 (1.6-4.0cm)IVSd1.1 (0.7-1.1cm) LVDd5.5 (3.9-5.9cm)PWd1.1 (0.7-1.1cm) LVDs4.6 (2.5-4.0cm)FS (%) 16.3 % LVEF (%)33.9 (>50%) M-Mode DIMENSIONS Aortic Root2.50 (2.2-3.7cm)Aortic Cusp Exc.2.00 (1.5-2.0cm) Aortic Valve AoV Peak Bfnhxxje870.0cm/Chelsey Peak GR.12mmHg Mitral Valve MV E Xqnkzjjs20.5cm/sMV A Mppnnjmk89.0cm/sE/A ratio0.6 TDI E/Lateral E'0.0E/Medial E'0.0 Tricuspid Valve TR Peak [id number]/sRAP [id number] Peak Gr.9mmHg [id number] LEFT VENTRICLE The left ventricle is normal size. There is normal left ventricular wall thickness. The systolic function is moderately impaired.EF-35% There is global hypokinesis of the left ventricle. Transmitral Doppler flow pattern is Grade III-reversible restrictive diastolic dysfunction. No left ventricle thrombus noted on this study. There is no ventricular septal defect visualized. There is no left ventricular aneurysm. There is no mass noted in the left ventricle. RIGHT VENTRICLE The right ventricle is normal size. There is normal right ventricular wall thickness. The right ventricular systolic function is normal. ATRIA The left atrium size is normal. The right atrium size is normal. The interatrial septum is intact with no evidence for an atrial septal defect. AORTIC VALVE The aortic valve is thickened but opens well. There is trace aortic regurgitation. There is no aortic valvular stenosis. There is no aortic valvular vegetation. MITRAL VALVE The mitral valve is thickened but opens well. Mitral regurgitation is mild. There is no mitral valve stenosis. There is no evidence of mitral valve prolapse. TRICUSPID VALVE The tricuspid valve leaflets are thickened , but open well. There is trace tricuspid regurgitation.RVSp-19 mmof hg There is no tricuspid valve stenosis. There is no tricuspid valve prolapse or vegetation. PULMONIC VALVE The pulmonary valve is normal in structure. There is trace pulmonic valvular regurgitation. There is no pulmonic valvular stenosis. GREAT VESSELS The aortic root is normal in size. The ascending aorta is normal in size. The pulmonary artery is normal. The IVC is normal in size and collapses >50% with inspiration. PERICARDIAL EFFUSION There is no pleural effusion. There is no pericardial effusion. <Conclusion> Normal Chamber size. Ef-35% Mild MR Trace TR/AR/PI RVSP-19 mmof hg.
--- NOTE | 2018-01-10 19:36 | HP ---
The patient was seen and examined on the bedside on 01/09/2018 in her room with her children CHIEF COMPLAINT: Chest pain, shortness of breath. HISTORY OF PRESENT ILLNESS: Ms. Monica Pinzon is a 57-year-old female with past medical history of COPD, polio, history of heavy smoking and drinking, came with intermittent palpitation, lightheadedness, chest pain for one week. The chest pain is described as left-sided pressure like that is worsened with any activity. She is not able to walk a few blocks without becoming short of breath, but for the past week, she is getting increasingly short of breath. She is not able to walk to the bathroom or wash dishes without becoming short of breath. The chest pain is also associated with palpitation, feeling like heart is racing and beating abnormally. She is also experiencing episode of lightheadedness and numbness down both arms associated with chest pain and palpitation. Sometimes, she is becoming nauseous. At that time, no vomiting. No diarrhea. She decided to come to the hospital because her symptoms are continuously getting worse. No fever. No chills. PAST MEDICAL HISTORY: As above. Hypertension, asthma, history of polio, section, left lower extremity surgery after polio. FAMILY HISTORY: Father and mother, noncontributory. HABITS: Smoking, light smoker, less than 10 cigarettes a day, but I know she is a heavy smoker. Alcohol, questionable. Substance abuse, no. ALLERGIES: THE PATIENT IS NOT ALLERGIC WITH ANY MEDICATIONS. HOME MEDICATIONS: Atorvastatin, Coreg, folic acid, losartan. REVIEW OF SYSTEMS: The patient is seen and examined on the bedside, one daughter and two sons are sitting on the bedside also. At that moment, the patient is known to have chest pain. No shortness of breath. No headache. No dizziness. No rashes. No diaphoresis. No adenopathy. No anxiety or depression. PHYSICAL EXAMINATION: VITAL SIGNS: Temperature 97.5, pulse 70, respiratory rate 17, blood pressure 164/97. HEENT: Head: Normocephalic, atraumatic. Eyes: PERRLA. Extraocular muscles intact. Conjunctivae clear. Nose patent. NECK: Supple. No carotid bruit, JVD or thyromegaly. CHEST: Bilaterally symmetrical. HEART: S1 and S2 positive. LUNGS: Clear to auscultation. ABDOMEN: Soft. Bowel sounds present. No organomegaly. EXTREMITIES: No edema. No cyanosis. NEUROLOGIC: The patient is awake and alert. Moving all 4 extremities. No focal deficit. LABORATORY DATA: White blood cells 8.7, hemoglobin 12.6, hematocrit 37.7, platelets 307. Sodium 140, potassium 4.6, BUN 11, creatinine 0.6, glucose 97. ASSESSMENT AND PLAN: Ms. Monica Pinzon is a 57-year-old female came with chest pain. Electrocardiogram shows normal sinus rhythm, 88 beats per minute, left axis deviation, left bundle branch block, sleep deprived wave in lead 1 and aVL. Similar EKG on 08/26/2016. ER had discussion done with Dr. Horowitz. Has chest pain, abnormal electrocardiogram, rule out chronic obstructive pulmonary disease, history of smoking, history of polio, left lower extremity weakness. The patient has nonobstructive coronary artery disease, history of cardiac catheterization in the past. MUGA scan was done. According to Dr. Horowitz, it looks like atypical chest pain, but still working on the patient's shortness of breath. Discussion done with Dr. Trent. He will see the patient. Echo was done, results are pending. Follow up with the labs. Gastrointestinal, deep venous thrombosis prophylaxes. We will follow up. Fatimah Rodriguez MD
--- NOTE | 2018-01-11 08:21 | PN ---
DATE: 01/10/2018 TYPE OF DICTATION: Addendum to the initial progress note dictated by our nurse practitioner, Maddi Claire. The patient has been evaluated, no evidence of acute VT, mild shortness of breath, stable. Plan is to discharge home. We will add on Lasix 40 mg daily and Aldactone 25 mg daily, in addition to the baseline medication that was patient getting. We will get echo to assess LV function. We will start losartan 100 mg daily, continue Coreg 6.25 mg daily, continue baby aspirin. Follow up in the office in a week. Once the echo is done, patient could go home, follow up echo as outpatient. Supplement electrolyte. Monitor electrolyte closely and told to her follow up SMA-[address] Rodriguez in 1 week. So far, no evidence of acute VT. Gena Horowitz MD
== END 2018-01-10 13:14 | disposition home or self-care (01) ==
LOC: ED 06:13 → INTOOBSV 08:25 → ERH 08:25 → 3RNO 11:44
PROVIDERS: ADMIT Internal Medicine; ATTEND Internal Medicine
DX: R07.89 Other chest pain (principal); I25.10 Atherosclerotic heart disease of native coronary artery without angina pectoris; I44.7 Left bundle-branch block, unspecified; I42.9 Cardiomyopathy, unspecified; I10 Essential (primary) hypertension; J44.9 Chronic obstructive pulmonary disease, unspecified; F17.210 Nicotine dependence, cigarettes, uncomplicated; Z72.820 Sleep deprivation; Z86.12 Personal history of poliomyelitis
CPT/HCPCS: 36415; 71045; 80053; 80061; 82550; 83036; 83615; 83735; 84100; 84443; 84484; 85025; 85610; 85730; 93005; 93306; 99283; G0378; J1940

== ENCOUNTER 2018-06-19 10:55 | Emergency (ER) | payer OTHER ==
[2018-06-19 11:42] VITALS: BMI 26.2
[2018-06-19] MEDS ORDERED: Tobramycin 0.3% OPHT SOLN OU STA (11:59)
[2018-06-19 12:04] VITALS: BP 156/89; PULSE 97; RESP 18; TEMP 98.7; O2SAT 98
--- NOTE | 2018-06-19 12:12 | ED PDOC ---
Arrival/HPI - General Chief Complaint: Eye Problem Time Seen by Provider: 06/19/18 11:47 Historian: Patient - History of Present Illness Narrative History of Present Illness (Text): 06/19/18 12:09 58yo female with pmhx of hypertension who present with complaint of b/l eyes pain, redness, tearing x 3days. Denies trauma, visual changes, headache, any other complaint. Past Medical History - Provider Review Nursing Documentation Reviewed: Yes - Past History Past History: No Previous - Infectious Disease Hx of Infectious Diseases: None - Reproductive Menopause: Yes - Cardiac Hx Cardiac Disorders: Yes Hx Hypertension: Yes - Pulmonary Hx Asthma: Yes - Neurological Hx Neurological Disorder: No - HEENT Hx HEENT Disorder: No - Renal Hx Renal Disorder: No - Endocrine/Metabolic Hx Endocrine Disorders: No - Hematological/Oncological Hx Blood Disorders: No - Integumentary Hx Dermatological Disorder: No - Musculoskeletal/Rheumatological Hx Musculoskeletal Disorders: No Hx Falls: No - Gastrointestinal Hx Gastrointestinal Disorders: No - Genitourinary/Gynecological Hx Genitourinary Disorders: No - Psychiatric Hx Psychophysiologic Disorder: No Hx Anxiety: No Hx Bipolar Disorder: No Hx Depression: No Hx Emotional Abuse: No Hx Hallucinations: No Hx Panic Disorder: No Hx Post Traumatic Stress Disorder: No Hx Psychosis: No Hx Physical Abuse: No Hx Schizophrenia: No Hx Sexual Abuse: No Hx Substance Use: No - Surgical History Hx Section: Yes Other/Comment: LLe sx for polio - Anesthesia Hx Anesthesia: Yes Hx Anesthesia Reactions: No Hx Malignant Hyperthermia: No - Suicidal Assessment Feels Threatened In Home Enviroment: No Family/Social History - Physician Review Nursing Documentation Reviewed: Yes Family/Social History: Unknown Family HX Smoking Status: Light Smoker < 10 Cigarettes Daily Hx Alcohol Use: Yes Frequency of alcohol use: Socially Hx Substance Use: No Allergies/Home Meds Allergies/Adverse Reactions: Allergies No Known Allergies Allergy (Verified 06/19/18 11:48) Home Medications: Home Meds Medication Instructions Recorded Confirmed Losartan Potassium [Cozaar] 100 mg PO DAILY 01/09/18 06/19/18 Review of Systems - Physician Review All systems were reviewed & negative as marked: Yes - Review of Systems Constitutional: Normal Eyes: Eye Pain, Other (B/L eye redness) ENT: Normal Respiratory: Normal Cardiovascular: Normal Gastrointestinal: Normal Genitourinary Female: Normal Musculoskeletal: Normal Skin: Normal Neurological: Normal Endocrine: Normal Hemo/Lymphatic: Normal Psychiatric: Normal Physical Exam Vital Signs Reviewed: Yes Vital Signs Temp Pulse Resp BP Pulse Ox 06/19/18 11:56 98.7 F 97 H 18 156/89 H 98 Temperature: Afebrile Blood Pressure: Normal Pulse: Regular Respiratory Rate: Normal Appearance: Positive for: Well-Appearing, Non-Toxic, Comfortable Pain Distress: None Mental Status: Positive for: Alert and Oriented X 3 - Systems Exam Head: Present: Atraumatic, Normocephalic Pupils: Present: PERRL Extroacular Muscles: Present: EOMI Conjunctiva: Present: Injected (Right eye). No: Icteric (Both red, worse on the right) Mouth: Present: Moist Mucous Membranes Neck: Present: Normal Range of Motion Respiratory/Chest: Present: Clear to Auscultation, Good Air Exchange. No: Respiratory Distress, Accessory Muscle Use Cardiovascular: Present: Regular Rate and Rhythm, Normal S1, S2. No: Murmurs Abdomen: No: Tenderness, Distention, Peritoneal Signs Back: Present: Normal Inspection Upper Extremity: Present: Normal Inspection. No: Cyanosis, Edema Lower Extremity: Present: Normal Inspection. No: Edema Neurological: Present: GCS=15, CN II-XII Intact, Speech Normal Skin: Present: Warm, Dry, Normal Color. No: Rashes Psychiatric: Present: Alert, Oriented x 3, Normal Insight, Normal Concentration Medical Decision Making - Medication Orders Current Medication Orders: Discontinued Medications Tobramycin Sulfate (Tobrex 0.3% Ophth Soln) 2 drop OU STAT STA Stop: 06/19/18 12:00 Disposition/Present on Arrival - Present on Arrival Any Indicators Present on Arrival: No History of DVT/PE: No History of Uncontrolled Diabetes: No Urinary Catheter: No History of Decub. Ulcer: No History Surgical Site Infection Following: None - Disposition Have Diagnosis and Disposition been Completed?: Yes Diagnosis: Conjunctivitis Disposition: HOME/ ROUTINE Disposition Time: 12:15 Patient Plan: Discharge Condition: STABLE Discharge Instructions (ExitCare): Conjunctivitis (Pinkeye) (DC) Additional Instructions: Follow up with your Doctor Wash hands constantly Return to ED for any worsening symptoms Referrals: Fatimah Rodriguez MD [Primary Care Provider] - Follow up with primary
== END 2018-06-19 12:29 | disposition home or self-care (01) ==
LOC: ED 10:55
DX: H10.9 Unspecified conjunctivitis (principal); I10 Essential (primary) hypertension; F17.210 Nicotine dependence, cigarettes, uncomplicated

== ENCOUNTER 2018-06-25 07:24 | Outpatient (CLI) | payer OTHER | END 2018-06-25 07:25 | disposition home or self-care (01) | LOC: LAB 07:24 ==

== ENCOUNTER 2018-08-07 16:11 | Inpatient (IN) | payer OTHER ==
[2018-08-07 16:12] VITALS: BMI 26.2
[2018-08-07] MEDS: Albuterol-Ipratrop 3 mg / 0.5 (3 ml) UD IH SCH ×3 (18:30→19:00)
--- NOTE | 2018-08-07 18:56 | ED PDOC ---
Arrival/HPI - General Chief Complaint: Dizziness/Lightheaded Time Seen by Provider: 08/07/18 17:05 Historian: Patient - History of Present Illness Narrative History of Present Illness (Text): 08/07/18 1700 58 year old female, whose past medical history includes hypertension, COPD, Polio and a "weak heart", presents to the emergency department complaining of dizziness, double vision, and nausea. Patient reports dizziness and nausea even when not moving and reports it worsens when getting up. Patient also reports diarrhea for the past 2 days. She states her double vision currently has resolved in the ED. Patient denies any recent fall or head injury. Patient recently traveled 3 months. Patient also reports generalized weakness, nasal congestion, and positive chills last night, but denies any fever, chest pain, shortness of breath, vomiting, diarrhea, urinary symptoms, back pain, neck pain, headache, or any other complaints. PMD: Dr. Drake Symptom Onset: Gradual Symptom Course: Unchanged Activities at Onset: Light Context: Home Past Medical History - Provider Review Nursing Documentation Reviewed: Yes - Past History Past History: No Previous - Infectious Disease Hx of Infectious Diseases: None - Cardiac Hx Cardiac Disorders: Yes Hx Congestive Heart Failure: Yes Hx Hypertension: Yes - Pulmonary Hx Respiratory Disorders: Yes Hx Asthma: Yes Hx Chronic Obstructive Pulmonary Disease (COPD): Yes - Neurological Hx Neurological Disorder: No - HEENT Hx HEENT Disorder: No - Renal Hx Renal Disorder: No - Endocrine/Metabolic Hx Endocrine Disorders: No - Hematological/Oncological Hx Blood Disorders: No - Integumentary Hx Dermatological Disorder: No - Musculoskeletal/Rheumatological Hx Musculoskeletal Disorders: No - Gastrointestinal Hx Gastrointestinal Disorders: No - Genitourinary/Gynecological Hx Genitourinary Disorders: No - Psychiatric Hx Psychophysiologic Disorder: No Hx Anxiety: No Hx Bipolar Disorder: No Hx Depression: No Hx Emotional Abuse: No Hx Hallucinations: No Hx Panic Disorder: No Hx Post Traumatic Stress Disorder: No Hx Psychosis: No Hx Physical Abuse: No Hx Schizophrenia: No Hx Sexual Abuse: No Hx Substance Use: No - Surgical History Hx Section: Yes Other/Comment: LLe sx for polio - Anesthesia Hx Anesthesia: Yes Hx Anesthesia Reactions: No Hx Malignant Hyperthermia: No - Suicidal Assessment Feels Threatened In Home Enviroment: No Family/Social History - Physician Review Nursing Documentation Reviewed: Yes Family/Social History: No Known Family HX Smoking Status: Light Smoker < 10 Cigarettes Daily Hx Alcohol Use: Yes Hx Substance Use: No Allergies/Home Meds Allergies/Adverse Reactions: Allergies No Known Allergies Allergy (Verified 08/07/18 16:25) Home Medications: Home Meds Medication Instructions Recorded Confirmed Losartan Potassium [Cozaar] 100 mg PO DAILY 01/09/18 08/07/18 Montelukast [Singulair] 10 mg PO HS 08/07/18 08/07/18 Review of Systems - Physician Review All systems were reviewed & negative as marked: Yes - Review of Systems Constitutional: Other (chills last night). absent: Fevers Eyes: Other (double vision (resolved)) ENT: Other (nasal conegstion) Respiratory: absent: SOB Cardiovascular: absent: Chest Pain Gastrointestinal: Diarrhea, Nausea. absent: Vomiting Genitourinary Female: absent: Dysuria, Frequency, Hematuria Musculoskeletal: absent: Back Pain, Neck Pain Neurological: Dizziness, Other (generalized weakness). absent: Headache Physical Exam Vital Signs Reviewed: Yes Vital Signs Temp Pulse Resp BP Pulse Ox 08/07/18 16:31 98.4 F 85 18 154/87 H 100 Temperature: Afebrile Blood Pressure: Hypertensive Pulse: Regular Respiratory Rate: Normal Appearance: Positive for: Well-Appearing, Non-Toxic, Comfortable Pain Distress: None Mental Status: Positive for: Alert and Oriented X 3 - Systems Exam Head: Present: Atraumatic, Normocephalic Pupils: Present: PERRL. No: Other (no nystagmus) Extroacular Muscles: Present: EOMI Conjunctiva: Present: Normal Mouth: Present: Moist Mucous Membranes Neck: Present: Normal Range of Motion Respiratory/Chest: Present: Wheezes (end expiratory wheeze), Decreased Breath Sounds, Other (mild conversational dyspnea). No: Respiratory Distress, Accessory Muscle Use Cardiovascular: Present: Regular Rate and Rhythm, Normal S1, S2. No: Murmurs Abdomen: No: Tenderness, Distention, Peritoneal Signs Back: Present: Normal Inspection Upper Extremity: Present: Normal Inspection. No: Cyanosis, Edema Lower Extremity: Present: Normal Inspection. No: Edema Neurological: Present: GCS=15, Speech Normal Skin: Present: Warm, Dry, Normal Color. No: Rashes Psychiatric: Present: Alert, Oriented x 3 Medical Decision Making ED Course and Treatment: 08/07/18 17:00 Impression: 58 year old female presents complaining of dizziness, nausea, diarrhea, and generalized weakness. Plan: -- EKG -- Labs -- Chest X-ray -- Duoneb, Lasiz, Solu-medrol -- Urinalysis -- Reassess and disposition Prior Visits: Notes and results from previous visits were reviewed. Progress Notes: 08/07/18 17:53 EKG shows NSR at 85 BPM. Interpreted by me. - RAD Interpretation Radiology Orders: 08/07/18 17:08 CHEST PORTABLE [RAD] Stat - EKG Interpretation Interpreted by ED Physician: Yes Type: 12 lead EKG - Medication Orders Current Medication Orders: Discontinued Medications Albuterol/Ipratropium (Duoneb 3 Mg/0.5 Mg (3 Ml) Ud) 3 ml IH Q15M PEPE Stop: 08/07/18 18:31 Last Admin: 08/07/18 18:30 Dose: 3 ml Methylprednisolone (Solu-Medrol) 125 mg IVP STAT STA Stop: 08/07/18 17:55 Last Admin: 08/07/18 18:36 Dose: 125 mg IVP Administration Document 08/07/18 18:36 JEFE (Rec: 08/07/18 18:36 JEFE [facility] [place]-20) Charges for Administration # of IVP Administrations 1 Disposition/Present on Arrival - Present on Arrival Any Indicators Present on Arrival: No History of DVT/PE: No History of Uncontrolled Diabetes: No Urinary Catheter: No History of Decub. Ulcer: No History Surgical Site Infection Following: None - Disposition Have Diagnosis and Disposition been Completed?: No Diagnosis: COPD exacerbation, Dizziness, CHF (congestive heart failure) Disposition: HOSPITALIZED Disposition Time: 19:00 Condition: STABLE Physician Patient Turnover - . Patient Signed Over To: Desmond Salter (pending labs, cxr, reassessment and dispo)
[2018-08-07 19:05] LABS: BASO # 0.03 K/mm3 (0.0-2.0); BASO % 0.3 % (0.0-3.0); EOS # 0.3 (0.0-0.7); EOS % 3.4 % (1.5-5.0); HEMOGLOBIN 12.8 g/dL (12.0-16.0); LYMPH # 3.6 (1.2-3.4); LYMPH % 38.4 % (22.0-35.0); MEAN CELL VOLUME 92.5 fl (80.0-105.0); MEAN CORPUSCULAR HEMOGLOBIN 31.1 pg (25.0-35.0); MEAN CORPUSCULAR HGB CONC 33.6 g/dl (31.0-37.0); MEAN PLATELET VOLUME 9.6 fl (7.0-11.0); MONO # 0.6 (0.1-0.6); MONO % 6.7 % (1.0-6.0); RBC 4.12 10^6/uL (3.5-6.1); RED CELL DISTRIBUTION WIDTH 13.2 % (11.5-14.5); WHITE BLOOD COUNT 9.3 10^3/uL (4.5-11.0)
[2018-08-07 19:27] LABS: ALB/GLOB RATIO 1.3 (1.1-1.8); ALT/SGPT 19 U/L (7-56); AST/SGOT 22 U/L (14-36); BLOOD UREA NITROGEN 16 mg/dL (7-21); CALCIUM 9.5 mg/dL (8.4-10.5); GFR NON-AFRICAN AMERICAN > 60
[2018-08-07 19:37] LABS: B-TYPE NATRIURETIC PEPTIDE 784 pg/mL (0-450); TROPONIN I < 0.01 ng/mL
--- NOTE | 2018-08-07 22:43 | CARD ---
APPROVED REPORT Date of service: 08/07/2018 EKG Measurement Heart [id number] CT [id number] <Conclusion> Normal sinus rhythm Left bundle branch block Abnormal ECG
--- NOTE | 2018-08-07 22:47 | ED PDOC ---
Physical Exam Vital Signs Temp Pulse Resp BP Pulse Ox 08/07/18 20:50 90 20 97 08/07/18 20:15 153/74 H 08/07/18 18:59 78 18 152/76 H 100 08/07/18 16:31 98.4 F 85 18 154/87 H 100 Medical Decision Making ED Course and Treatment: 08/07/18 19:00 Case endorsed to me by Dr. Chowdhury pending labs, Chest X-ray, reassessment and disposition. CXR Impression: As read by me, negative. 08/07/18 21:[address] Rodriguez TYPEWRITER ALIGNER who is aware and agrees with the plan. Accepts patient into her service. 08/08/18 01:33 - Lab Interpretations Lab Results: Troponin I < 0.01 ng/mL 08/07/18 18:59 NT-Pro-B Natriuret Pep 784 pg/mL (0-450) H 08/07/18 18:59 Total Bilirubin 0.4 mg/dL (0.2-1.3) 08/07/18 18:59 AST 22 U/L (14-36) 08/07/18 18:59 ALT 19 U/L (7-56) 08/07/18 18:59 Alkaline Phosphatase 76 U/L (38-126) 08/07/18 18:59 Total Protein 7.0 g/dL (5.8-8.3) 08/07/18 18:59 Albumin 4.0 g/dL (3.0-4.8) 08/07/18 18:59 Globulin 3.0 gm/dL 08/07/18 18:59 Albumin/Globulin Ratio 1.3 (1.1-1.8) 08/07/18 18:59 I have reviewed the lab results: Yes - RAD Interpretation Radiology Orders: 08/07/18 17:08 CHEST PORTABLE [RAD] Stat Fiscal Services Director: ED Physician - Medication Orders Current Medication Orders: Discontinued Medications Albuterol/Ipratropium (Duoneb 3 Mg/0.5 Mg (3 Ml) Ud) 3 ml IH Q15M PEPE Stop: 08/07/18 18:31 Last Admin: 08/07/18 19:00 Dose: 3 ml Furosemide (Lasix) 40 mg IVP STAT STA Stop: 08/07/18 19:44 Last Admin: 08/07/18 20:15 Dose: 40 mg MAR Blood Pressure Document 08/07/18 20:15 CD (Rec: 08/07/18 20:21 CD [facility] [place]-21) Blood Pressure Blood Pressure (100/60-150/90) 153/74 IVP Administration Document 08/07/18 20:15 CD (Rec: 08/07/18 20:21 CD [facility] [place]-21) Charges for Administration # of IVP Administrations 1 Methylprednisolone (Solu-Medrol) 125 mg IVP STAT STA Stop: 08/07/18 17:55 Last Admin: 08/07/18 18:36 Dose: 125 mg IVP Administration Document 08/07/18 18:36 JEFE (Rec: 08/07/18 18:36 JEFE [facility] [place]-20) Charges for Administration # of IVP Administrations 1 - Scribe Statement The provider has reviewed the documentation as recorded by the Andi Orozco Provider Scribe Attestation: All medical record entries made by the Gemmaibsushma were at my direction and personally dictated by me. I have reviewed the chart and agree that the record accurately reflects my personal performance of the history, physical exam, medical decision making, and the department course for this patient. I have also personally directed, reviewed, and agree with the discharge instructions and disposition. Disposition/Present on Arrival - Present on Arrival Any Indicators Present on Arrival: No History of DVT/PE: No History of Uncontrolled Diabetes: No Urinary Catheter: No History of Decub. Ulcer: No History Surgical Site Infection Following: None - Disposition Have Diagnosis and Disposition been Completed?: Yes Diagnosis: COPD exacerbation, Dizziness, CHF (congestive heart failure) Disposition: HOSPITALIZED Disposition Time: 01:30 Patient Problems: Current Active Problems Problem Status Onset COPD exacerbation Acute Dizziness Acute Condition: STABLE
[2018-08-08] MEDS: Albuterol-Ipratrop 3 mg / 0.5 (3 ml) UD IH SCH ×4 (01:26→19:36)
[2018-08-08 06:49] LABS: HEMOGLOBIN 13.3 g/dL (12.0-16.0); MEAN CELL VOLUME 90.9 fl (80.0-105.0); MEAN CORPUSCULAR HEMOGLOBIN 30.9 pg (25.0-35.0); MEAN PLATELET VOLUME 9.8 fl (7.0-11.0); RBC 4.3 10^6/uL (3.5-6.1); WHITE BLOOD COUNT 8.5 10^3/uL (4.5-11.0)
[2018-08-08 06:50] LABS: IRON 86 ug/dL (45-180)
[2018-08-08 07:00] LABS: % IRON SATURATION 25 % (20-55); TOTAL IRON BINDING CAPACITY 347 ug/dL (265-497)
[2018-08-08 07:13] LABS: ALB/GLOB RATIO 1.2 (1.1-1.8); ALBUMIN 4.4 g/dL (3.0-4.8); BILIRUBIN,DIRECT 0.3 mg/dL (0.0-0.4)
[2018-08-08 09:23] LABS: BLOOD UREA NITROGEN 15 mg/dL (7-21); GFR NON-AFRICAN AMERICAN > 60
[2018-08-08] MEDS: MethylPREDNISolone 40 mg Vial IVP SCH ×2 (09:42→22:21)
--- NOTE | 2018-08-08 12:03 | CP.PCM.CON ---
History of Present Illness - History of Present Illness History of Present Illness: Awake, alert, no distress Reason for consultation: Cardiac evaluation for congestive heart failure Brief history of present illness: A 58 year old female who came in to the ER due to dizziness, double vision, generalized weakness and nausea. She also claimed to had diarrhea for the past 2 days. History of hypertension,CHF, COPD, polio, alcohol abuse, current smoker use to have 2 PPD now down to 1/2 Pack per day. Consult was called to evaluate for congestive heart failure. Seen and examined by me and Dr. Horowitz Review of Systems - Review of Systems All systems: reviewed and no additional remarkable complaints except Review of Systems: as per HPI Past Patient History - Infectious Disease Hx of Infectious Diseases: None - Past Social History Smoking Status: Light Smoker < 10 Cigarettes Daily - CARDIAC Hx Cardiac Disorders: Yes Hx Congestive Heart Failure: Yes Hx Hypertension: Yes - PULMONARY Hx Respiratory Disorders: Yes Hx Asthma: Yes Hx Chronic Obstructive Pulmonary Disease (COPD): Yes - NEUROLOGICAL Hx Neurological Disorder: No - HEENT Hx HEENT Problems: No - RENAL Hx Chronic Kidney Disease: No - ENDOCRINE/METABOLIC Hx Endocrine Disorders: No - HEMATOLOGICAL/ONCOLOGICAL Hx Blood Disorders: No - INTEGUMENTARY Hx Dermatological Problems: No - MUSCULOSKELETAL/RHEUMATOLOGICAL Hx Musculoskeletal Disorders: No - GASTROINTESTINAL Hx Gastrointestinal Disorders: No - GENITOURINARY/GYNECOLOGICAL Hx Genitourinary Disorders: No - PSYCHIATRIC Hx Psychophysiologic Disorder: No Hx Anxiety: No Hx Bipolar Disorder: No Hx Depression: No Hx Emotional Abuse: No Hx Hallucinations: No Hx Panic Symptoms: No Hx Post Traumatic Stress Disorder: No Hx Psychosis: No Hx Physical Abuse: No Hx Schizophrenia: No Hx Sexual Abuse: No Hx Substance Use: No - SURGICAL HISTORY Hx Section: Yes Other/Comment: LLe sx for polio - ANESTHESIA Hx Anesthesia: Yes Hx Anesthesia Reactions: No Hx Malignant Hyperthermia: No Meds Allergies/Adverse Reactions: Allergies Allergy/AdvReac Type Severity Reaction Status Date / Time No Known Allergies Allergy Verified 08/07/18 16:25 - Medications Medications: Current Medications Albuterol/Ipratropium (Duoneb 3 Mg/0.5 Mg (3 Ml) Ud) 3 ml IH [id number] [facility] Last Admin: 08/08/18 08:03 Dose: 3 ml Carvedilol (Coreg) 6.25 mg PO BID [facility] Last Admin: 08/08/18 09:43 Dose: 6.25 mg Famotidine (Pepcid) 40 mg PO HS [facility] Losartan Potassium (Cozaar) 100 mg PO DAILY [facility] Last Admin: 08/08/18 09:42 Dose: 100 mg Methylprednisolone (Solu-Medrol) 40 mg IVP Q12 [facility] Last Admin: 08/08/18 09:42 Dose: 40 mg Montelukast Sodium (Singulair) 10 mg PO HS [facility] Last Admin: 08/07/18 23:38 Dose: 10 mg Nicotine (Nicoderm Cq) 1 patch TD DAILY [facility] Last Admin: 08/08/18 09:42 Dose: 1 patch Physical Exam - Constitutional Appears: Non-toxic, No Acute Distress - Eye Exam Eye Exam: Normal appearance Pupil Exam: NORMAL ACCOMODATION - ENT Exam ENT Exam: Mucous Membranes Moist, Normal Exam - Respiratory Exam Respiratory Exam: Decreased Breath Sounds, Clear to Auscultation Bilateral, NORMAL BREATHING PATTERN - Cardiovascular Exam Cardiovascular Exam: REGULAR RHYTHM, +S1, +S2 - GI/Abdominal Exam GI & Abdominal Exam: Normal Bowel Sounds, Soft - Neurological Exam Neurological exam: Alert, Oriented x3 - Psychiatric Exam Psychiatric exam: Normal Affect, Normal Mood - Skin Skin Exam: Dry, Normal Color, Warm Results - Vital Signs Recent Vital Signs: Last Vital Signs Temp 97.5 F L 08/08/18 06:00 Pulse 102 H 08/08/18 09:43 Resp 20 08/08/18 06:00 BP 181/81 H 08/08/18 09:43 Pulse Ox 95 08/08/18 06:00 - Labs Result Diagrams: 08/08/18 06:00 08/08/18 07:30 Labs: Laboratory Results - last 24 hr 08/07/18 08/07/18 08/08/18 18:59 18:59 06:00 WBC 9.3 RBC 4.12 Hgb 12.8 Hct 38.1 MCV 92.5 MCH 31.1 MCHC 33.6 RDW 13.2 Plt Count 295 MPV 9.6 Neut % (Auto) 51.2 Lymph % (Auto) 38.4 H Hardy % (Auto) 6.7 H Eos % (Auto) 3.4 Baso % (Auto) 0.3 Lymph # (Auto) 3.6 H Hardy # (Auto) 0.6 Eos # (Auto) 0.3 Baso # (Auto) 0.03 Absolute Neuts (auto) 4.77 Sodium 137 Potassium 4.4 Chloride 105 Carbon Dioxide 23 Anion Gap 13 BUN 16 Creatinine 0.6 L Est GFR ( Amer) > 60 Est GFR (Non-Af Amer) > 60 Random Glucose 87 Hemoglobin A1c Calcium 9.5 Magnesium 1.8 Iron TIBC % Saturation Total Bilirubin 0.4 0.4 Direct Bilirubin 0.3 AST 22 24 ALT 19 13 Alkaline Phosphatase 76 82 Lactate Dehydrogenase 475 Total Creatine Kinase 76 Troponin I < 0.01 NT-Pro-B Natriuret Pep 784 H Total Protein 7.0 7.9 Albumin 4.0 4.4 Globulin 3.0 3.6 Albumin/Globulin Ratio 1.3 1.2 Triglycerides 70 Cholesterol 231 H LDL Cholesterol Direct 159 H HDL Cholesterol 55 TSH 3rd Generation 08/08/18 08/08/18 08/08/18 06:00 06:00 06:00 WBC 8.5 RBC 4.30 Hgb 13.3 Hct 39.1 MCV 90.9 MCH 30.9 MCHC 34.0 RDW 13.0 Plt Count 319 MPV 9.8 Neut % (Auto) Lymph % (Auto) Hardy % (Auto) Eos % (Auto) Baso % (Auto) Lymph # (Auto) Hardy # (Auto) Eos # (Auto) Baso # (Auto) Absolute Neuts (auto) Sodium Potassium Chloride Carbon Dioxide Anion Gap BUN Creatinine Est GFR ( Amer) Est GFR (Non-Af Amer) Random Glucose Hemoglobin A1c 5.7 Calcium Magnesium Iron 86 TIBC 347 % Saturation 25 Total Bilirubin Direct Bilirubin AST ALT Alkaline Phosphatase Lactate Dehydrogenase Total Creatine Kinase Troponin I NT-Pro-B Natriuret Pep Total Protein Albumin Globulin Albumin/Globulin Ratio Triglycerides Cholesterol LDL Cholesterol Direct HDL Cholesterol TSH 3rd Generation 08/08/18 08/08/18 06:00 07:30 WBC RBC Hgb Hct MCV MCH MCHC RDW Plt Count MPV Neut % (Auto) Lymph % (Auto) Hardy % (Auto) Eos % (Auto) Baso % (Auto) Lymph # (Auto) Hardy # (Auto) Eos # (Auto) Baso # (Auto) Absolute Neuts (auto) Sodium 138 Potassium 4.3 Chloride 104 Carbon Dioxide 21 Anion Gap 17 BUN 15 Creatinine 0.5 L Est GFR ( Amer) > 60 Est GFR (Non-Af Amer) > 60 Random Glucose 146 H Hemoglobin A1c Calcium 10.0 Magnesium Iron TIBC % Saturation Total Bilirubin Direct Bilirubin AST ALT Alkaline Phosphatase Lactate Dehydrogenase Total Creatine Kinase Troponin I NT-Pro-B Natriuret Pep Total Protein Albumin Globulin Albumin/Globulin Ratio Triglycerides Cholesterol LDL Cholesterol Direct HDL Cholesterol TSH 3rd Generation 0.45 L Assessment & Plan - Assessment and Plan (Free Text) Assessment: Brief history of present illness: A 58 year old female who came in to the ER due to dizziness, double vision, generalized weakness and nausea. She also claimed to had diarrhea for the past 2 days. History of hypertension,left bundle branch block on EKG, COPD, CHF, polio, alcohol abuse, current smoker use to have 2 PPD now down to 1/2 Pack per day. Consult was called to evaluate for congestive heart failure. Cardiac cath done on 01/15/17 showed mild non obstructive coronary artery disease limited to very distal LAD, diffusely diseased non flow limiting, non ischemic cardiomyopathy possibly secondary to ETOH abuse,LVEF 40- 45%. MUGA done on 01/16/17 and showed LVEF 56%. Recent Echo on 01/10/18 showed LVEF 35%, mild MR, trace TR/AR/PI, RVSP 19 mmHg. Troponin negative. BNP slightly elevated but patient denies shortness of breath. Chest x ray unremarkable.no ev idence of heart failre or ischemia. Ruled out congestive heart failure. Uncontrolled blood pressure. Plan: Denies shortness of breath Uncontrolled blood pressure Hydralazine 10 mg TID PRN Heart rate stable/controlled On Coreg 6.26 mg BID, Cozaar 100 mg daily, Solumedrol 40 mg q 12 hours, Nicoderm patch daily Continue current treatment Continue current medications Will follow up Smoking cessation Lifestyle modifications Plan and treatment discussed with Dr. Horowitz Thank you Dr. Rodriguez for the opportunity of taking care of Monica Pinzon - Date & Time Date: 08/08/18 Time: 06:30
--- NOTE | 2018-08-08 12:13 | RAD ---
Date of service: 08/07/2018 HISTORY: dizziness COMPARISON: 01/09/2018 TECHNIQUE: 1 view obtained. FINDINGS: LUNGS: No active pulmonary disease. PLEURA: No significant pleural effusion identified, no pneumothorax apparent. CARDIOVASCULAR: No aortic atherosclerotic calcification present. Normal cardiac size. No pulmonary vascular congestion. OSSEOUS STRUCTURES: No significant abnormalities. VISUALIZED UPPER ABDOMEN: Normal. OTHER FINDINGS: None. IMPRESSION: No active disease.
[2018-08-08 12:49] LABS: FOLATE 16.4 ng/mL
--- NOTE | 2018-08-08 14:16 | HP ---
DATE OF EXAM: 08/08/2018 The patient was seen and examined at bedside 08/08/2018. CHIEF COMPLAINT: Dizziness, lightheadedness and shortness of breath. HISTORY OF PRESENT ILLNESS: Ms. Jeromy Anderson is a 58-year-old female with past medical history of hypertension, COPD, polio, weak heart, as per patient had congestive heart failure came to emergency department for dizziness, double vision, nausea and the patient reports dizziness and nausea even when not moving and report it worsens when getting up. The patient also has diarrhea from past 2 days. Says double vision currently has resolved when she came to the emergency room, but when I saw her in the room today, her daughter was with her. According to the patient, she is feeling a lot better, but still having problem and no history of fall. No fever. No chills. No hematuria. No hematochezia. PAST MEDICAL HISTORY: Congestive heart failure, hypertension, asthma, COPD and section. FAMILY HISTORY: Father and mother, noncontributory. HABITS: Light smoker, less than 10 cigarettes per day ,now we give her nicotine patch. Alcohol, yes. Substance abuse, no. ALLERGIES: THE PATIENT IS NOT ALLERGIC TO ANY MEDICATION. HOME MEDICATIONS: Cozaar and Singulair. REVIEW OF SYSTEMS: The patient was seen and examined at bedside in her room. Feeling better. She has chills last night, but right now no fever and no chills. Double vision got better. Still having nasal congestion. Sometime shortness of breath if she is walking. Has history of diarrhea, nausea, but not vomiting. No dysuria or frequency or hematuria. No back pain. Feeling generalized weakness. PHYSICAL EXAMINATION: VITAL SIGNS: Temperature 98.4, pulse 85, respiratory rate 18, blood pressure 154/87 and pulse oximetry 100. HEENT: Head is normocephalic and atraumatic. Eyes; PERRLA. Extraocular muscles intact. Conjunctivae clear. Nose patent. Mucous membrane moist. NECK: Supple. No carotid bruits. No JVD or thyromegaly. CHEST: Bilaterally symmetrical. HEART: S1 and S2, positive. LUNGS: Clear to auscultation. ABDOMEN: Soft. Bowel sounds present. No organomegaly. EXTREMITIES: No edema. No cyanosis. NEUROLOGIC: The patient is awake and alert. Moving all four extremities. No focal deficit. LABORATORY DATA: White blood cell noted , hemoglobin 13.3, hematocrit 39.1 and platelet 319. Sodium 130, potassium 4.3, BUN 15, creatinine 0.5 and glucose 146. ASSESSMENT AND PLAN: Ms. Jeromy Anderson is a 58-year-old lady with history of multiple comorbidities, came in the emergency room due to dizziness, double vision, complaining about diarrhea, history of hypertension, left bundle-branch block on electrocardiogram, chronic obstructive pulmonary disease, congestive heart failure, polio as a childhood, history of alcohol abuse, history of currently smoking, used to be 2 pack per day, now it is half pack per day, we gave her nicotine patch. We called Cardiology, Pulmonary consult. History of uncontrolled blood pressure, continue hydralazine, Coreg, added Solu-Medrol. Appreciate either Dr. Horowitz's input. Gastrointestinal and deep venous thrombosis prophylaxis. Repeat labs. We will followup. Fatimah Rodriguez MD MTDIrma
--- NOTE | 2018-08-08 16:10 | CARD ---
APPROVED REPORT Date of service: 08/08/2018 INDICATION Congestive Heart Failure COPD Dizziness,Evaluate LV and RV EF% PROCEDURE The above named patient recieved 22.4 millicuries of Tc99m tagged red blood cells intravenously. After achieving equilibrium, gated imaging of 16/frame/cycle was performed utillizing Gamma camera interfaced with a digital computer and gated device. Gated imaging was then performed in the left anterior oblique, anterior, and the left lateral projections. Findings Calculated LV Ejection Fraction is 64%. Impressions Calculated Ejection Fraction is 64 %.
[2018-08-08] MEDS ORDERED: Albuterol-Ipratrop 3 mg / 0.5 (3 ml) UD IH PRN (21:43)
--- NOTE | 2018-08-09 01:42 | CON ---
DATE OF CONSULTATION: 08/08/2018 PULMONARY CONSULTATION REFERRING PHYSICIAN: Dr. Rodriguez. REASON FOR CONSULTATION: Chronic obstructive lung disease. HISTORY OF PRESENT ILLNESS: This is a 58-year-old female, known to me from office and previous admission, has a chronic obstructive lung disease, hypertension, congestive heart failure, came into ER because of cough and shortness of breath. She was treated with bronchodilators. No hemoptysis, no emesis, no hematuria, and no diarrhea reported. PAST MEDICAL HISTORY: As per history of present illness. ALLERGIES: NONE KNOWN. SOCIAL HISTORY: Still smokes. Denied any alcohol use. FAMILY HISTORY: No significant cardiopulmonary disease reported. MEDICATIONS: She is on hydralazine 10 mg q.i.d. p.r.n., Coreg 6.25 mg twice a day, Cozaar 100 mg daily, DuoNeb every 6 hours, Lasix 40 mg daily, Lipitor 40 mg daily, Nicoderm patch daily, Pepcid 40 mg at bedtime, Singulair 10 mg at bedtime, Solu-Medrol 40 mg every 12 hours. REVIEW OF SYSTEMS: No headache. No rhinitis. No cough. No shortness of breath. No chest pain. No nausea, vomiting, or diarrhea. No leg pain or leg swelling. PHYSICAL EXAMINATION: GENERAL: No acute distress. VITAL SIGNS: Temperature is 98, heart rate is 96, respiratory rate is 18, blood pressure 124/76, pulse ox 96% on room air. HEENT: Moist mucous membrane. Crowded airway. NECK: Supple. No JVD. LUNGS: Have bilateral wheezing. Prolonged expiratory phase. HEART: S1 and S2. ABDOMEN: Soft, nontender. No organomegaly. EXTREMITIES: No edema. NEUROLOGICALLY: Awake and alert, follows simple commands. LABORATORY DATA: Shows hemoglobin 13.3, hematocrit 39.1, WBC 8.5, platelet is 319. Sodium 138, potassium 4.3, chloride 104, bicarbonate 29, BUN 15, creatinine 0.5, glucose 146, calcium is 10. Iron is 86, TIBC 347, total bili 0.4, AST 24, ALT 13, alk phos is 82 , proBNP 1130, albumin is 4.4, cholesterol is 231, and TSH is 0.45. Microbiology, no culture is available. She has a MUGA scan done today, which showed LV ejection fraction of 64%. Chest x-ray done in ER shows no infiltrate or effusion. IMPRESSION AND PLAN: Exacerbation of chronic obstructive lung disease, hypertension. The patient has to stop smoking, also probably need attended sleep study as an outpatient, continue steroids, inhaled bronchodilators, antibiotics, gastric prophylaxis, and deep venous thrombosis prophylaxis. Thank you, and we will follow with you. Gena Trent MD
[2018-08-09 07:37] LABS: HEMOGLOBIN 12.7 g/dL (12.0-16.0); LYMPH # 1.8 (1.2-3.4); LYMPH % 9.4 % (22.0-35.0); MEAN CORPUSCULAR HEMOGLOBIN 30.8 pg (25.0-35.0); MEAN CORPUSCULAR HGB CONC 33.5 g/dl (31.0-37.0); MEAN PLATELET VOLUME 9.9 fl (7.0-11.0); MONO # 0.4 (0.1-0.6); MONO % 2.1 % (1.0-6.0); RBC 4.12 10^6/uL (3.5-6.1); RED CELL DISTRIBUTION WIDTH 13.1 % (11.5-14.5)
[2018-08-09] MEDS ORDERED: Arformoterol 15 mcg/2 ml Inh Sol IH SCH (08:00)
[2018-08-09] MEDS ORDERED: Budesonide 0.5 mg/2 ml Inhal Susp UD IH SCH (08:00)
[2018-08-09 08:10] LABS: ALB/GLOB RATIO 1.2 (1.1-1.8); ALBUMIN 4.2 g/dL (3.0-4.8); ALT/SGPT 13 U/L (7-56); AST/SGOT 27 U/L (14-36); BLOOD UREA NITROGEN 16 mg/dL (7-21); CALCIUM 9.3 mg/dL (8.4-10.5); GFR NON-AFRICAN AMERICAN > 60
[2018-08-09] MEDS: MethylPREDNISolone 40 mg Vial IVP SCH (09:10)
[2018-08-09 09:11] VITALS: BP 154/79; PULSE 65
[2018-08-09 10:19] VITALS: RESP 20; TEMP 98.2; O2SAT 94
--- NOTE | 2018-08-10 00:37 | PN ---
DATE: 08/09/2018 REFERRING PHYSICIAN: Fatimah Rodriguez MD SUBJECTIVE: She is sitting at the side of the bed. Night was unremarkable. Feels better. Cough is much better. No nausea, vomiting, diarrhea, leg pain or leg swelling. PHYSICAL EXAMINATION: GENERAL: No acute distress. VITAL SIGNS: Temperature is 98, heart rate is 65, respiratory rate is 20, blood pressure 154/79, pulse of 94% on room air. HEENT: Moist mucous membrane. Crowded airway. NECK: Supple. No JVD. LUNGS: Have prolonged expiratory phase with some rhonchi. HEART: S1 and S2. ABDOMEN: Soft, nontender, no organomegaly. EXTREMITIES: There is no edema. NEUROLOGIC: Awake, alert, follows simple command. MEDICATIONS: She is on hydralazine 10 mg four times a day p.r.n., Brovana inhaled twice a day, Coreg 0.25 mg twice a day, Cozaar 100 mg daily, DuoNeb every 6 hours [id number], Lasix 40 mg daily, Lipitor 40 mg daily, Nicoderm patch daily, Pepcid 40 mg daily, Pulmicort inhaled twice a day, Singulair 10 mg daily, Solu-Medrol 40 mg twice a day, Zithromax 500 mg daily. LABORATORY DATA: Shows hemoglobin 12.7, hematocrit 37.9, WBC 19, platelet is 331. Sodium 138, potassium 4.6, chloride 102, bicarbonate 28, BUN 16, creatinine 0.5, glucose 122, calcium 9.3, phosphorus 4.3, magnesium 2.2, AST 27, ALT 13, alk phos is 70. Albumin is 4.2. TSH 0.21. IMPRESSION: Chronic obstructive lung disease, hypertension, may have sleep apnea syndrome. PLAN: From a pulmonary point of view, doing okay. May go home on tapered dose of steroids, antibiotics, inhaled bronchodilator. We will see her outpatient. Readjust her inhaled bronchodilator. Thank you, and we will follow with you. Gena Trent MD
--- NOTE | 2018-08-12 08:19 | PN ---
DATE: 08/08/2018 REASON FOR CONSULTATION AND FOLLOWUP: Acute decompensated congestive heart failure, acute on chronic, secondary to systolic dysfunction. SUBJECTIVE: The patient feels a lot better. Not in apparent distress. OBJECTIVE: VITAL SIGNS: Temperature afebrile, heart rate 96, blood pressure 124/76. HEENT: PERRLA. Extraocular muscles intact. NECK: Supple. No carotid bruits or thyromegaly. CHEST: Clear to auscultation. HEART: S1 and S2. Regular. ABDOMEN: Soft. EXTREMITIES: Clubbing and cyanosis negative. LABORATORY DATA: Blood workup as follows; WBC is 19, hemoglobin 12 and hematocrit 37.9, platelet count 331. Chemistry shows sodium 138, potassium 4.6, chloride 102, bicarbonate 28, anion gap of 12, BUN 26 and creatinine 0.5. The patient had a MUGA scan done yesterday that shows ejection fraction 64%. IMPRESSION: A 58-year-old female who came to the emergency room with complaints of generalized weakness and some shortness of breath, diarrhea, a stressful situation at home, active tobacco abuse, active alcohol abuse, history of cardiac catheterization on 01/15/2018 that shows nonobstructive coronary artery disease. The patient has a decreased left ventricular function. Ejection fraction 40% to 45%. Last MUGA shows ejection fraction of 56% dated 01/16/2017. Echo 01/10/2018, ejection fraction is 35%, mild mitral regurgitation, trace tricuspid regurgitation, trace aortic regurgitation, trace pulmonary insufficiency, right ventricular systolic pressure 19. Troponin remains negative yesterday. No evidence of acute myocardial infarction. Yesterday, repeat MUGA scan was done, found to be ejection fraction 64% consistent with normal left ventricular function. RECOMMENDATION: Continue Cozaar, continue Coreg. Continue gentle diuretics. Discussed with the patient in length, and switch Lasix to p.o. daily. The patient is cleared from Cardiology point of view to be discharged. When stable from Pulmonary and medical point of view, the patient can be discharged home. No further cardiac workup is planned or warranted. Thank you Dr. Rodriguez for providing us the opportunity in taking care of the patient, Monica Pinzon. Gena Horowitz MD
--- NOTE | 2018-08-12 10:00 | DS ---
This case was discussed with Dr. Rodriguez and she is in agreement with the treatment plan. HISTORY OF PRESENT ILLNESS: This is a 58-year-old patient who came into the ER with complaints of shortness of breath, blurred vision, dizziness, and headache. She has a past medical history of CHF, hypertension, COPD, nicotine dependence, migraine, and CAD with no stenting. I saw the patient today, she was alert, and she was sitting in bed. She denies acute distress, shortness of breath, cough, hemoptysis, constipation, abdominal pain, dysuria, or migraines. PHYSICAL EXAMINATION: VITAL SIGNS: Temperature 98, respirations 22, pulse 65, blood pressure 154/79, and sat 95% on room air. MEDICATIONS: She is on albuterol every 6 hours, 15 mcg every 12 hours, Lipitor 40 mg p.o., azithromycin 500 mg p.o. daily, budesonide, Coreg 6.25 mg, Pepcid 40 mg, Lasix 40 mg p.o. daily, hydralazine 10 mg p.o. q.i.d., losartan 100 mg daily, and montelukast 10 mg daily. The patient started the patch daily. LABORATORY DATA: White blood cell 19, hemoglobin 12.7, and hematocrit 37.9. Sodium 138, potassium 4.6, BUN 16, and creatinine 0.5. Hemoglobin A1c was 5.7. Random glucose 122 today. ASSESSMENT AND PLAN: A 58-year-old female who came in for congestive heart failure, chronic obstructive pulmonary disease, dizziness, hypertension, and migraine. The patient was seen by Cardiology and Pulmonology. I saw the patient today, she was very anxious to go home and states she feels much better. The patient will be discharged per cardiac clearance, was already cleared by Pulmonology. She continue medications at the bedside. She will go home with azithromycin 500 mg p.o. daily for elevated white blood cells at 19. She is on Coreg 6.25 mg, she is on Lasix 40 mg, hydralazine 10 mg, and losartan 100 mg. We will follow the patient in the office visit in one week. Jose A Michelle APN Fatimah Rodriguez MD
== END 2018-08-09 15:01 | disposition home or self-care (01) | DRG 292 ==
LOC: ED 16:11 → ERH 19:55 → 2RNO 21:34 → 3RSO 08-08 19:32
PROVIDERS: ADMIT Internal Medicine; ATTEND Internal Medicine
DX: I11.0 Hypertensive heart disease with heart failure (principal); J44.1 Chronic obstructive pulmonary disease with (acute) exacerbation; I50.23 Acute on chronic systolic (congestive) heart failure; F17.210 Nicotine dependence, cigarettes, uncomplicated; G43.909 Migraine, unspecified, not intractable, without status migrainosus; I44.7 Left bundle-branch block, unspecified; I08.3 Combined rheumatic disorders of mitral, aortic and tricuspid valves; Z86.12 Personal history of poliomyelitis